=== PATIENT | female | born 1950 | race Caucasian/White ===

== ENCOUNTER → 2016-08-14 | Outpatient (CLI) | payer MEDICARE ==
[2016-08-16 11:08] LABS: Honeybee Venom IgE Class CLASS 0; Paper Wasp IgE 0.45 kU/L (<0.35); Paper Wasp IgE Class CLASS I; White-Faced Hornet IgE 0.36 kU/L (<0.35); White-Faced Hornet IgE Class CLASS I; Yellow Jacket IgE Class CLASS I
== END | disposition home or self-care (01) ==
LOC: LABWHC1 09:12
PROVIDERS: ATTEND Allergy & Immunology
DX: T78.49XA Other allergy, initial encounter (principal)
CPT/HCPCS: 36415; 86003

== ENCOUNTER → 2021-10-14 | Outpatient (CLI) | payer MEDICARE ==
--- NOTE | 2021-10-15 04:55 | MR ---
EXAMINATION TYPE: MR pelvis wo con DATE OF EXAM: 10/14/2021 COMPARISON: None HISTORY: Pelvic pain, left hip pain Multiplanar multi echo imaging of the pelvis without contrast. There is abnormal decreased signal in the left femoral head on the T1 images extending into the femor al neck. There are small areas of decreased signal as well in the left acetabulum. There is increased left side hip joint fluid. There is some partial collapse of the articular surface of the left femor al head. Sacral segments have normal alignment. No free fluid in the pelvis. No pelvic mass. No sign of a dixon l obstruction. Sacroiliac joints are intact. The proximal right femur and hip joint appear normal. 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 Par tial collapse of the articular surface. Hip joint effusion. There is some mild reactive edema in the left acetabulum. Septic arthritis in the left hip not entirely excluded.
== END | disposition home or self-care (01) ==
LOC: RADMRIMAIN 19:28
PROVIDERS: ATTEND Orthopaedic Surgery
DX: M16.12 Unilateral primary osteoarthritis, left hip (principal); M25.452 Effusion, left hip
CPT/HCPCS: 72195

== ENCOUNTER → 2021-10-18 | Outpatient (CLI) | payer MEDICARE | END | disposition home or self-care (01) | LOC: LABPAT 11:24 | PROVIDERS: ATTEND Orthopaedic Surgery | DX: Z01.812 Encounter for preprocedural laboratory examination (principal); Z22.322 Carrier or suspected carrier of Methicillin resistant Staphylococcus aureus | CPT/HCPCS: 87070 ==

== ENCOUNTER 2021-11-10 11:16 | Day surgery (SDC) | payer MEDICARE ==
[2021-11-09 08:36] VITALS: BMI 18.8
[~2021-11-10 11:16] MED LIST: ALBUTEROL NEB (CONC) 2.5 MG/0.5 ML INHALATION ONE; DEXAMETHASONE SOD PHOSPHATE 4 MG/ML 1 ML VIAL IV ONE; LACTATED RINGERS 1,000 ML IV SCH; LIDOCAINE 1% (10MG/ML) FOR IV START INTRADERMA PRN; LIDOCAINE 2% (PF) 20 MG/ML 5 ML VIAL INHALATION ONE; LIDOCAINE VISCOUS 300 MG/15 ML CUP MUCOUS MEM ONE; ONDANSETRON 4 MG/2 ML VIAL IVP PRN; SODIUM CHLORIDE 0.9% 1,000 ML IV SCH; fentaNYL (PF) 50 MCG/ML 2 ML AMP IV PRN
--- NOTE | 2021-11-10 12:36 | CT ---
EXAMINATION TYPE: CT Chest rm Qureshi Protocol DATE OF EXAM: 11/10/2021 COMPARISON: None HISTORY: bronchial navagation CT DLP: [address] of the chest was performed with lung and mediastinal window settings submitted. The la ck of contrast limits evaluation of the vascular, mediastinal and parenchymal structures including th e upper abdomen. LUNGS: Spiculated left upper lobe mass measuring approximately 2.5 x 3.6 x 1.9 cm. Areas of pleural e xtension noted posteriorly. No additional masses identified at this time. Pleural-based groundglass d ensity right lower lobe. MEDIASTINUM/CECILIA: Thoracic aorta is of normal caliber with limited evaluation given lack of contrast . The heart is not enlarged. No evidence for mediastinal mass. No lymph nodes greater than 1cm. UPPER ABDOMEN: No significant abnormality is seen. OTHER: No significant other abnormality. IMPRESSION: 1. Spiculated mass left upper lobe. CT for bronchial navigation.
[2021-11-10] MEDS ORDERED: SUCCINYLCHOLINE CHLORIDE 200 MG/10 ML VIAL IV ONE (12:40)
[2021-11-10] MEDS ORDERED: PROPOFOL 10 MG/ML 20 ML VIAL IV ONE (12:40)
[2021-11-10] MEDS ORDERED: fentaNYL (PF) 50 MCG/ML 2 ML AMP ONE (12:40)
[2021-11-10] MEDS ORDERED: LIDOCAINE 2% INJ 20 MG/ML (2 ML VIAL) ONE (12:40)
--- NOTE | 2021-11-10 13:33 | P.PCN ---
Date of Procedure: 11/10/21 Preoperative Diagnosis: Left upper lobe mass Postoperative Diagnosis: Left upper lobe mass Procedure(s) Performed: 1 Navigation bronchoscopy, transbronchial biopsies and brushings of the left upper lobe mass 2 EBUS evaluation of the mediastinal lymph nodes Operative Findings: The patient had a preoperative computed tomography scan of the chest using the Veran protocol. The CAT scan images were reviewed. The left upper lobe opacity was identified it was mapped appropriately. The CAT scan images are uploaded into a USB and then into the [employer] tower. After obtaining the consent the patient was taken to the OR suite he was intubated and put on mechanical ventilation by anesthesia then the scope was advanced to the ET tube until the Trachea was seen and it was normal and then the johanny appears normal then the scope advanced to the left main and JERMAIN LB1- LB3 were seen and no endobronchial lesions were seen then the scope advanced to the lingula and the LB4 and LB5 were seen and no endobronchial lesions were seen the scope retracted and advanced to the left lower lobes LB6 to LB12 were seen one by one and no endobronchial lesions, then the scope was retracted back to the johanny and advanced to the Right main and RUL RB1 and RB2 and RB3 were seen one by one and no endobronchial lesions were seen the scope. The bronchoscope was then retracted and advanced to the BI and RML RB4 and RB5 were seen and no endobronchial lesions were seen then it was retracted and advanced to the RLL RB6 to RB12 were seen one by one and no endobronchial lesions. Navigation bronchoscopy was performed. The main johanny and the secondary johanny on the left were used as the reference points and appropriate calibration was done. Following that, using a navigation guidance , the bronchoscope was advanced to the left upper lobe superior segment and various transbronchial biopsies and transbronchial brushings of the left upper lobe opacity was done without any complications. Then EBUS was used and the lymph nodes were examined. Direct measurement of the mediastinal lymph nodes included station for L, 10 L, 4 out of, 7, 10 R and 11 are superior and inferior and the lymph nodes and all of the stations were nonenlarged and all of them were less than 5 mm in size. No biopsies were done. The EBUS bronchoscope was removed and the procedure was terminated. The patient was extubated and transferred to recovery in stable condition. Chest x-rays to follow. Discharge per anesthesia.
[2021-11-10 13:52] VITALS: RESP 16; TEMP 97.3
[2021-11-10 14:45] VITALS: BP 174/69; PULSE 71
--- NOTE | 2021-11-10 15:06 | XR ---
EXAMINATION TYPE: XR chest 1V DATE OF EXAM: 11/10/2021 COMPARISON: CT 11/10/2021 INDICATION: Post bronchoscopy TECHNIQUE: Single frontal view of the chest is obtained. FINDINGS: The heart size is normal. The pulmonary vasculature is normal. There is diffuse increased density through the left upper lung field. No pneumothorax is evident. IMPRESSION: 1. No pneumothorax post bronchoscopy.
== END 2021-11-10 15:20 | disposition home or self-care (01) ==
LOC: ORWHC2ENDO 11:16
PROVIDERS: ATTEND Internal Medicine Critical Care Medicine
DX: R91.8 Other nonspecific abnormal finding of lung field (principal); F17.210 Nicotine dependence, cigarettes, uncomplicated; M81.0 Age-related osteoporosis without current pathological fracture; Z85.3 Personal history of malignant neoplasm of breast; Z86.16 Personal history of COVID-19; I10 Essential (primary) hypertension; F41.9 Anxiety disorder, unspecified; E78.5 Hyperlipidemia, unspecified; Z80.9 Family history of malignant neoplasm, unspecified; Z82.49 Family history of ischemic heart disease and other diseases of the circulatory system; J44.9 Chronic obstructive pulmonary disease, unspecified; M19.90 Unspecified osteoarthritis, unspecified site; Z79.83 Long term (current) use of bisphosphonates; Z79.51 Long term (current) use of inhaled steroids; Z79.899 Other long term (current) drug therapy; Z88.0 Allergy status to penicillin
CPT/HCPCS: 71045; 71250; 31628; 31623; 31627; J0330; J3010; J2704; J2001

== ENCOUNTER → 2021-12-01 | Outpatient (CLI) | payer MEDICARE ==
[2021-12-01 13:57] LABS: INR 0.9 (<1.2); Partial Thromboplastin Time 24.2 sec (22.0-30.0); Prothrombin Time 10.3 sec (9.0-12.0)
[2021-12-01 18:34] LABS: Basophils # (A) 0.05 X 10*3/uL (0.00-0.10); Basophils % (A) 0.6 %; Eosinophils # (A) 0.15 X 10*3/uL (0.04-0.35); Eosinophils % (A) 1.7 %; HCT 42.6 % (37.2-46.3); HGB 13.2 g/dL (12.0-15.0); Immature Grans, Automated 0.3 %; Lymphocytes # (A) 1.76 X 10*3/uL (0.90-5.00); Lymphocytes % (A) 20.3 %; MCH 31.8 pg (27.0-32.0); MCV 102.7 fL (80.0-97.0); Monocytes # (A) 0.76 X 10*3/uL (0.20-1.00); Monocytes % (A) 8.8 %; NRBC Per 100 WBC 0 /100 WBCS (0.0-0.0); Neutrophils % (A) 68.3 %; Platelet Count 382 X 10*3/uL (140-440); RBC 4.15 X 10*6/uL (4.10-5.20); RDW 13.5 % (11.5-14.5); WBC 8.65 X 10*3/uL (4.50-10.00)
[2021-12-01 19:50] LABS: African American GFR (CKD) 54.7 (60.0-200.0); Anion Gap 10.8 mmol/L (10.00-18.00); Blood Urea Nitrogen 25.2 mg/dL (9.0-27.0); Carbon Dioxide 23.6 mmol/L (20.0-27.5); Non-African American GFR(CKD) 47.2 (60.0-200.0); Potassium 5.3 mmol/L (3.5-5.5)
== END | disposition home or self-care (01) ==
LOC: LABPAT 11:23
PROVIDERS: ATTEND Thoracic Surgery (Cardiothoracic Vascular Surgery)
DX: Z01.812 Encounter for preprocedural laboratory examination (principal); R58 Hemorrhage, not elsewhere classified; R06.00 Dyspnea, unspecified; R91.8 Other nonspecific abnormal finding of lung field; Z79.899 Other long term (current) drug therapy
CPT/HCPCS: 80051; 82565; 82947; 84520; 85025; 85610; 85730

== ENCOUNTER 2021-12-08 07:30 | Inpatient (IN) | payer MEDICARE ==
[2021-12-16 13:07] VITALS: BMI 19.6
[2021-12-22] MEDS ORDERED: DEXAMETHASONE SOD PHOSPHATE 4 MG/ML 1 ML VIAL IV ONE (06:15)
[2021-12-22] MEDS ORDERED: LIDOCAINE 1% (10MG/ML) FOR IV START INTRADERMA ONE (06:31)
[2021-12-22] MEDS: LACTATED RINGERS 1,000 ML IV SCH ×2 (06:31→06:52)
[2021-12-22 06:35] LABS: Glucose,Whole Blood 108 mg/dL (70-110)
[2021-12-22] MEDS: ONDANSETRON 4 MG/2 ML VIAL IVP ONE ×2 (06:47→14:20)
[2021-12-22] MEDS ORDERED: MIDAZOLAM 2 MG/2 ML VIAL IV ONE (07:10)
[2021-12-22] MEDS ORDERED: MIDAZOLAM 2 MG/2 ML VIAL ONE (07:30)
[2021-12-22] MEDS ORDERED: SODIUM CHLORIDE 0.9% (PF) 10 ML VIAL ONE (07:30)
[2021-12-22] MEDS ORDERED: HYDROmorphone (PF) 1 MG/ML ONE (07:30)
[2021-12-22] MEDS ORDERED: LIDOCAINE 2% INJ 20 MG/ML (2 ML VIAL) ONE (07:30)
[2021-12-22] MEDS ORDERED: ROPIVACAINE 5 MG/ML 30 ML VIAL ONE (07:30)
[2021-12-22] MEDS ORDERED: ROCURONIUM 10 MG/ML (5 ML VIAL) IV ONE (07:30)
[2021-12-22] MEDS ORDERED: SUCCINYLCHOLINE CHLORIDE 200 MG/10 ML VIAL IV ONE (07:30)
[2021-12-22] MEDS ORDERED: PROPOFOL 10 MG/ML 20 ML VIAL IV ONE (07:30)
[2021-12-22] MEDS ORDERED: NEOSTIGMINE 1 MG/ML 10 ML VIAL ONE (07:30)
[2021-12-22] MEDS ORDERED: GLYCOPYRROLATE 0.2 MG/ML 2 ML VIAL ONE (07:30)
[2021-12-22] MEDS ORDERED: ePHEDrine 50 MG/ML 1 ML VIAL ONE (07:30)
[2021-12-22] MEDS ORDERED: fentaNYL (PF) 50 MCG/ML 2 ML AMP ONE (07:30)
[2021-12-22] MEDS ORDERED: LACTATED RINGERS 1,000 ML IV ONE (09:05)
[2021-12-22] MEDS ORDERED: BUPIVACAINE (PF) 0.5% 30 ML VIAL SQ ONE (09:35)
--- NOTE | 2021-12-22 10:23 | P.ANPRN ---
Procedure Note - Anesthesia - Nerve Block Performed Left Erector Spinae Time Out Performed: Yes (07:) Date of Procedure: 12/22/21 Procedure Start Time: Procedure Stop Time: :15 Location of Patient: PreOp Indication: Acute Post-Operative Pain, Requested by Surgeon (Dr Cuadra) Sedation Type: Sedate with meaningful contact maintained Preparation: Sterile Prep Position: Sitting Catheter: None Needle Types: Pajunk Needle Gauge: 21 Ultrasound used to visualize needle placement: Yes Ultrasound used to observe medication spread: Yes Injectate: 0.5% Ropivacaine (see comment for volume) (15cc +10cc PF Normal saline) Blood Aspirated: No Pain Paresthesia on Injection Noted: No Resistance on Injection: Normal Image Stored and Saved: Yes Events: Uneventful and Well Tolerated
--- NOTE | 2021-12-22 11:08 | P.OP ---
Date of Procedure: 12/22/21 Preoperative Diagnosis: Lung cancer left upper lobe Postoperative Diagnosis: Same Procedure(s) Performed: Robotic-assisted thoracoscopic left upper lobectomy with mediastinal lymph node dissection Anesthesia: MIKAELA Surgeon: Edenilson Cuadra Associate Data Scientist #1: Jean-Paul Arnold Estimated Blood Loss (ml): 25 IV fluids (ml): 1,000 Urine output (ml): 200 Pathology: other (Left upper lobe, lymph node stations L5 L6 level 7 L8 L9 L10 L11) Condition: stable Disposition: PACU Indications for Procedure: 71-year-old female with left upper lobe carcinoma documented on biopsy. PET scan and DANY were negative for metastasis. Patient is good functioning patient ECOG score 1. Pulmonary function was adequate to tolerate lobectomy. Operative Findings: Incomplete fissures. Anthracotic lymphadenopathy in hilum and mediastinum. Large tumor in posterior segment of left upper lobe. 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 No significant air leak on completion of the procedure. Good reexpansion of the lower lobe. Significant bleb disease of the anterior basal segment of the left lower lobe Description of Procedure: Patient was brought to the operating room. Gen. anesthesia was induced. She was intubated with a double-lumen endotracheal tube. This was positioned with fiberoptic bronchoscopy and secured. Patient was turned in the right lateral decubitus position and appropriately positioned for robotic lobectomy. The left chest was sterilely prepped and draped. Single lung ventilation was initiated. Initial port was placed in the anterior axillary line and the eighth interspace. This was a 8 mm robotic port. After confirming placement in the pleural space, CO2 insufflation was begun. 212 mm robotic ports were placed anterior and posterior to the initial port in the same interspace. Second 8 mm port was placed posteriorly in the fifth interspace. A working port was placed between the 2 most anterior ports at the level of the diaphragm. The robot was docked. We began with dissection in the fissure. We able to dissected the fissure down to the pulmonary artery in the midportion portion of the fissure. Both anteriorly and posteriorly to this the fissure could not be completely dissected. Dissection was carried along the pulmonary artery and the lingular branch was identified. This was dissected out and ligated and divided with a robotic vascular stapler. Dissection was carried proximally and another branch to the upper lobe was identified. This was dissected out and ligated and divided with the robotic vascular stapler. Dissection was now carried posteriorly and inferiorly. The inferior pulmonary vein was taken down and dissection carried across the pleural reflection behind the inferior pulmonary vein. The bronchus was identified. L 10 and level 7 lymph nodes were dissected out and sent for permanent section. Dissection was carried up onto the pulmonary artery. Higher branch leading to the upper lobe was identified and dissected out and ligated and divided with a robotic vascular stapler. We were now able to connect our initial dissection with the posterior dissection and complete the fissure posteriorly with a single firing of a robotic 45 mm blue stapler. We now directed our dissection anteriorly. Mckenna was opened above the inferior pulmonary vein and multiple branches of the superior pulmonary vein draining the lingula and upper lobe were identified. These were dissected out and ligated and divided with a single firing of a robotic vascular stapler. Dissection was carried up onto the bronchus. We able to initially encircle the lingular bronchus and ligated and divided it with a robotic green stapler. Dissection was carried anteriorly and L5 lymph node was resected. Truncus ante rior doses was now dissected out and ligated and divided with a robotic vascular stapler. There was a single remaining high branch of the pulmonary vein which was also ligated and divided with the robotic stapler. Dissection was carried back onto the hilum and the bronchus to the remaining apical and posterior segments of the upper lobe was dissected out. L 11 lymph nodes were dissected out and sent. We encircled the bronchus and ligated and divided it with a robotic green stapler. We now able to identify the remaining branch of the pulmonary artery and pulmonary vein to the upper lobe. These were encircled and ligated and divided with a single firing of a robotic vascular stapler. Remaining pleural reflection was taken down and a L6 lymph node was encountered and was resected and sent for permanent section. The lobectomy specimen was placed in an Endo Catch bag and the robot was undocked. The working port incision was enlarged and the lobectomy specimen removed in the Endo Catch bag and sent for permanent section. The chest was irrigated with warm water and the lung inflated. There was a minimal air leak at the fissure but no air leak from the bronchial stump. There was no significant bleeding. Some pro-gel was applied to the area of the airleak. 28-Estonian chest tube was placed through separate stab incision and positioned posterior apically. The lung was comple tely inflated at this time and the scope was removed. The chest tube was secured with suture and the incisions closed with layers of Vicryl suture. Posterior rib blocks were performed with half percent Marcaine. Skin glue and dry sterile dressings were applied. Chest tube was connected to a Pleur-evac. Patient was turned supine and extubated and transferred to recovery in stable condition.
--- NOTE | 2021-12-22 11:19 | P.ANPRN ---
Procedure Note - Anesthesia - Invasive Line Right Arterial Line Time Out Performed: Yes Date of Procedure: 12/22/21 Location of Patient: PreOp Preparation: Sterile Prep, Sterile Dressing Arterial Line Location: Radial Ultrasound Used: No Purpose - Visualization and Identification of Vasculature: No (20 guage done .right radial) Narrative: Central line placement per sterile protocol utilized.
[2021-12-22] MEDS: HYDROmorphone 0.5 MG/0.5 ML SYRINGE IVP PRN ×2 (11:56→13:02)
--- NOTE | 2021-12-22 11:56 | XR ---
EXAMINATION TYPE: XR chest 1V portable DATE OF EXAM: 12/22/2021 COMPARISON: 11/10/2021 INDICATION: Post lobectomy TECHNIQUE: Single frontal view of the chest is obtained. FINDINGS: The heart size is normal. The pulmonary vasculature is normal. Patient status post left lobectomy. Left-sided chest tube is present. Some apical pneumothorax is pre sent. Right lung is clear. No shift of the mediastinum towards the left with shift trachea to the lef t. Subcutaneous emphysema is present on the left. IMPRESSION: 1. Postsurgical changes left hemithorax post left lobectomy. 2. Left-sided chest tube in position with the tip at the apex. Pneumothorax is present.
[2021-12-22] MEDS ORDERED: IV FLUID CONTINUATION 1,000 ML IV ONE (13:14)
[2021-12-22] MEDS ORDERED: hydrALAZINE HCL 20 MG/ML 1 ML VIAL IVP ONE (13:36)
[2021-12-22] MEDS ORDERED: ONDANSETRON 4 MG/2 ML VIAL IVP PRN (14:00)
[2021-12-22] MEDS ORDERED: IPRATROPIUM-ALBUTEROL 3 ML NEB IH PRN (14:00)
[2021-12-22] MEDS ORDERED: ALPRAZolam 0.25 MG TAB PO PRN (14:00)
[2021-12-22] MEDS ORDERED: MAGNESIUM HYDROXIDE 2,400 MG/10 ML CUP PO PRN (14:00)
[2021-12-22] MEDS ORDERED: DEXTROSE 5%-0.45% NACL 1,000 ML IV SCH (14:00)
[2021-12-22] MEDS ORDERED: hydrALAZINE HCL 20 MG/ML 1 ML VIAL IVP PRN (14:04)
[2021-12-22 14:10] LABS: Glucose,Whole Blood 112 mg/dL (70-110)
[2021-12-22] MEDS: KETOROLAC 15 MG/ML 1 ML VIAL IVP SCH ×2 (14:17→20:09)
[2021-12-22] MEDS: traMADol 50 MG TAB PO PRN ×3 (14:18→21:06)
--- NOTE | 2021-12-22 14:18 | P.CNPUL ---
History of Present Illness Consult date: 12/22/21 Requesting physician: Edenilson Cuadra Reason for consult: abnormal CXR/CT Chief complaint: Non-small cell lung cancer History of present illness: This is a very pleasant 71-year-old female patient with a known history of chronic and ongoing tobacco dependence, left breast cancer with previous edgar mpectomy and radiation with hormonal treatment, osteoarthritis, chronic obstructive pulmonary disease with an FEV1 value 61% of predicted. She was also found to have early stage adenocarcinoma of the lung, T2a N0 M0 via navigational bronchoscopy formed by Dr. Hernandez. She was referred to Dr. Cuadra for left upper lobectomy. She was admitted today electively for the surgery. She did undergo a robotic-assisted thorascopic left upper lobectomy with mediastinal lymph node dissection. She is seen in the immediate postoperative care unit. She is awake and alert in no acute distress. Right-sided chest tube in place to wall suction with positive leak. Approximately 150 serosanguineous fluid returned thus far. She is maintaining good O2 saturations in the 90s on room air. Afebrile. Hemodynamically stable. Potassium 5.1. Glucose 112. She will be initiated on her Symbicort, DuoNeb inhalations, cefazolin. Heparin for DVT prophylaxis. She is educated regarding the use of the incentive spirometer. Postop chest x-ray reveals left hemithorax post left lobectomy. Left-sided chest tube in position with the tip at the apex. Small apical pneumothorax is present. Review of Systems REVIEW OF SYSTEMS: CONSTITUTIONAL: Denies any recent significant weight loss or weight gain. EYES: Denies change in vision. EARS, NOSE, MOUTH, THROAT: Denies headaches, denies sore throat. CARDIOVASCULAR: Denies chest pain, palpitations or syncopal episodes. RESPIRATORY: Left-sided chest discomfort post surgery. Denies shortness of breath, cough, congestion or hemoptysis. GASTROINTESTINAL: Denies change in appetite, denies abdominal pain GENITOURINARY: Denies hematuria, denies infections. MUSKULOSKELETAL: Denies pain, denies swelling. INTEGUMENTARY: Denies rash, denies eczema. NEUROLOGICAL: Denies recent memory loss, no recent seizure activity. PSYCHIATRIC: Denies anxiety, denies depression. HEMATOLOGIC/LYMPHATIC: Denies anemia, denies enlarged lymph nodes. Past Medical History Past Medical History: Cancer, COPD, Hypertension, Osteoarthritis (OA) Additional Past Medical History / Comment(s): mass in lung left-dx lung CA,steroids Dec 2021,breast CA 2014-received radiation History of Any Multi-Drug Resistant Organisms: None Reported Past Surgical History: Breast Surgery Additional Past Surgical History / Comment(s): ectpoic , lumpectomy lft breast, navigational bronchoscopy 11-10-21 Past Anesthesia/Blood Transfusion Reactions: No Reported Reaction Additional Past Anesthesia/Blood Transfusion Reaction / Comment(s): no hx blood transfusion Smoking Status: Current every day smoker - Past Family History Mother Family Medical History: Cancer Brother(s) Family Medical History: Cancer Additional Family Medical History / Comment(s): 1 brother-prostate Ca stge 4,1 brother-colon CA stge 4 Father Family Medical History: CVA/TIA, Hyperlipidemia, Hypertension Additional Family Medical History / Comment(s): stents Medications and Allergies Home Medications Medication Instructions Recorded Confirmed Type FLUoxetine HCL [PROzac] 10 mg PO QAM 10/24/21 12/22/21 History Losartan Potassium [Cozaar] 100 mg PO QAM 10/24/21 12/22/21 History Metoprolol Succinate (ER) [Toprol 25 mg PO QAM 10/24/21 12/22/21 History Xl] Simvastatin [Zocor] 40 mg PO HS 10/24/21 12/22/21 History diphenhydrAMINE HCL [Benadryl 25 mg PO DIRECTED PRN 10/24/21 12/22/21 History Allergy] traMADol HCL 50 mg PO BID PRN 10/24/21 12/22/21 History ALPRAZolam [Xanax] 0.25 mg PO BID PRN 11/09/21 12/22/21 History Albuterol Nebulized [Ventolin 2.5 mg INHALATION TID PRN 12/16/21 12/22/21 History Nebulized] Budesonide/Glycopyr/Formoterol 1 puff INHALATION BID 12/16/21 12/22/21 History [Breztri Aerosphere Inhaler] Ibuprofen [Motrin Ib] 200 mg PO DIRECTED PRN 12/22/21 12/22/21 History Allergies Allergy/AdvReac Type Severity Reaction Status Date / Time amoxicillin [From Augmentin] Allergy Rash/Hives Verified 12/22/21 06:18 clavulanic acid Allergy Rash/Hives Verified 12/22/21 06:18 [From Augmentin] Physical Exam Vitals: Vital Signs Temp Pulse Resp BP Pulse Ox 12/22/21 13:54 91 16 150/68 97 12/22/21 13:40 75 16 157/69 95 12/22/21 13:25 74 16 160/72 94 L 12/22/21 13:10 72 16 166/72 95 12/22/21 12:50 80 16 163/72 95 12/22/21 12:35 76 16 148/67 96 12/22/21 12:20 72 16 160/72 95 12/22/21 12:03 77 18 152/68 95 12/22/21 11:50 80 16 178/75 94 L 12/22/21 11:35 80 16 183/78 95 12/22/21 11:20 86 16 172/72 98 12/22/21 11:05 96.8 F L 88 16 144/65 100 12/22/21 07:16 87 18 142/65 98 12/22/21 06:22 97.5 F L 85 18 133/60 100 Intake and Output 12/21/21 12/22/21 12/22/21 22:59 06:59 14:59 Intake Total 300 2600 Output Total 95 Balance 300 2505 Intake: IV 300 2600 Output: Urine 70 Estimated Blood Loss 25 Other: Weight 46.9 kg GENERAL EXAM: Alert, very pleasant 71-year-old female, on room air, fairly comfortable in no apparent distress. HEAD: Normocephalic. EYES: Normal reaction of pupils, equal size. NOSE: Clear with pink turbinates. THROAT: No erythema or exudates. NECK: No masses, no JVD. CHEST: Left-sided chest tube secured in place. Dressing dry and intact. Pleural VAC to wall suction. Positive leak. LUNGS: Equal air entry with faint end expiratory wheeze, few scattered rhonchi in the left lung. CVS: S1 and S2 normal with no audible murmur, regular rhythm. ABDOMEN: No hepatosplenomegaly, normal bowel sounds, no guarding or rigidity. SPINE: No scoliosis or deformity SKIN: No rashes CENTRAL NERVOUS SYSTEM: No focal deficits, tone is normal in all 4 extremities. EXTREMITIES: There is no peripheral edema. No clubbing, no cyanosis. Peripheral pulses are intact. Results - Laboratory Findings CBC and BMP: 12/22/21 06:31 - Diagnostic Findings Chest x-ray: image reviewed Assessment and Plan Assessment: Early-stage adenocarcinoma of the lung, T2a N0 M0. Status post robotic-assisted left upper lobectomy with mediastinal lymph node dissection. Postoperative day #0 Chronic and ongoing tobacco dependence Chronic obstructive pulmonary disease with an FEV1 value 61% of predicted History of left-sided breast cancer status post lumpectomy with radiation therapy and hormonal treatment Osteoarthritis History of COVID-19 infection in August 2021. Vaccinated 3. Plan: The patient was seen and evaluated Chest x-ray, labs and medications are reviewed Continue Symbicort, DuoNeb inhalations Cefazolin per CT services Heparin for DVT prophylaxis Encourage increased use of the incentive spirometer Again educated regarding the importance of complete smoking cessation We will continue to follow and make further recommendations based on her clini nori status I have personally seen and examined the patient, performed the documentation and the assessment and plan as written. Number of minutes spent on the visit: 20.
[2021-12-22] MEDS: IPRATROPIUM-ALBUTEROL 3 ML NEB IH SCH ×3 (15:31→20:42)
[2021-12-22] MEDS: HEPARIN SODIUM,PORCINE/PF 5,000 UNIT/0.5 ML SYRINGE SQ SCH ×2 (16:37→23:44)
[2021-12-22] MEDS: SENNOSIDES-DOCUSATE SODIUM 1 EACH TAB PO SCH (20:09)
[2021-12-22] MEDS: ATORVASTATIN 20 MG TAB PO SCH (20:09)
[2021-12-22] MEDS: SYMBICORT 160-4.5 MCG INHALER INHALATION SCH (20:42)
[2021-12-23] MEDS: KETOROLAC 15 MG/ML 1 ML VIAL IVP SCH ×4 (02:18→19:30)
[2021-12-23] MEDS: traMADol 50 MG TAB PO PRN ×4 (04:52→20:15)
[2021-12-23 07:04] LABS: Basophils % (A) 0 %; Eosinophils # (A) 0.1 k/uL (0-0.7); Eosinophils % (A) 1 %; HGB 11.7 gm/dL (11.4-16.0); Lymphocytes # (A) 0.9 k/uL (1.0-4.8); Lymphocytes % (A) 10 %; MCH 32.9 pg (25.0-35.0); MCHC 32.4 g/dL (31.0-37.0); MCV 101.3 fL (80.0-100.0); Mean Platelet Volume 8.9; Monocytes # (A) 0.5 k/uL (0-1.0); Monocytes % (A) 5 %; Neutrophils # (A) 7.6 k/uL (1.3-7.7); Neutrophils % (A) 83 %; Platelet Count 252 k/uL (150-450); RBC 3.56 m/uL (3.80-5.40); RDW 12.2 % (11.5-15.5); WBC 9.1 k/uL (3.8-10.6)
[2021-12-23 07:10] LABS: Calcium 8.7 mg/dL (8.4-10.2)
--- NOTE | 2021-12-23 07:10 | XR ---
EXAMINATION TYPE: XR chest 1V DATE OF EXAM: 12/23/2021 COMPARISON: NONE HISTORY: SOB, Follow Up FINDINGS: Indwelling tubes and catheters are unchanged. Left-sided chest tube with tiny left apical pneumothora x persists. Subcutaneous air along the left lateral chest wall extending into the neck. Postoperative changes of the left chest. No change in left basilar volume loss. Stable appearance of the cardio-mediastinal structures at this time. IMPRESSION: 1. Stable portable chest. Clinical correlation and follow up until resolution is recommended.
[2021-12-23] MEDS: SYMBICORT 160-4.5 MCG INHALER INHALATION SCH ×2 (07:33→19:43)
[2021-12-23] MEDS: IPRATROPIUM-ALBUTEROL 3 ML NEB IH SCH ×4 (07:33→19:43)
[2021-12-23] MEDS: HEPARIN SODIUM,PORCINE/PF 5,000 UNIT/0.5 ML SYRINGE SQ SCH ×2 (08:37→15:00)
[2021-12-23] MEDS: PANTOPRAZOLE 40 MG TABLET PO SCH (08:37)
[2021-12-23] MEDS: FLUoxetine HCL 10 MG CAP PO SCH (08:38)
[2021-12-23] MEDS: SENNOSIDES-DOCUSATE SODIUM 1 EACH TAB PO SCH ×2 (08:38→20:15)
[2021-12-23] MEDS: METOPROLOL SUCCINATE (ER) 25 MG TAB.ER.24H PO SCH (08:38)
[2021-12-23] MEDS: LOSARTAN 50 MG TAB PO SCH (08:38)
--- NOTE | 2021-12-23 08:39 | P.PN ---
Subjective Progress Note Date: 12/23/21 Principal diagnosis: Lung cancer left upper lobe consistent with primary adenocarcinoma based on preoperative navigational bronchoscopy. Previous medical history of hypertension, hyperlipidemia, current tobacco dependence, mild COPD, daily wine consumption, stage IA breast cancer treated with lumpectomy and radiation, osteoporosis with need for left hip replacement, and significant family history of cancer POD #1 robotic assisted thoracoscopic left upper lobectomy with mediastinal lymph node dissection The patient was seen and examined this morning sitting up in a recliner eating breakfast in no acute distress. States post surgical pain is mostly controlled with current medication regimen, denies shortness of breath. States she feels much better be up in the chair versus an in bed. Left pleural chest tube remains to continuous wall suction, no air leak present this morning. Currently on room air with oxygen saturation in the mid 90s, able to achieve 1000 mL on incentive spirometry. No other new concerns. Objective - Vital Signs Vital signs: Vital Signs Temp 97.8 F 12/22/21 20:00 Pulse 96 12/23/21 07:43 Resp 21 12/23/21 07:00 BP 140/71 12/23/21 07:00 Pulse Ox 93 L 12/23/21 07:00 FiO2 Intake & Output 12/22/21 12/23/21 12/23/21 18:59 06:59 18:59 Intake Total 2600 950 Output Total 295 535 40 Balance 2305 415 -40 Weight 47.8 kg Intake: IV 2600 Intake, IV Titration 500 Amount Dextrose 5%-0.45% NaCl 1, 500 000 ml @ 50 mls/hr IV . Q20H [facility] Rx#:[id number] Oral 450 Output: Urine 270 535 40 Estimated Blood Loss 25 Other: Voiding Method Indwelling Catheter Indwelling Catheter - Exam CONSTITUTIONAL: Appears comfortable, cooperative, no acute distress RESPIRATORY: Lungs sounds diminished bilaterally. Respirations even, nonlabored. Currently on room air with oxygen saturation 95%. Able to achieve 1000 mL on incentive spirometry. Weak cough. CARDIOVASCULAR: S1, S2 present. Regular rate and rhythm, sinus rhythm on telemetry. Palpable peripheral pulses bilaterally. No edema present. No calf pain or tenderness noted. SCDs present. GASTROINTESTINAL: Abdomen soft, nontender, nondistended. Active bowel sounds present 4 quadrants. Tolerating diet. GENITOURINARY: Staley present this morning clear, yellow urine, output 25-50 mL per hour overnight INTEGUMENTARY: Skin is warm and dry with evidence of good perfusion. Thoracic incisions well approximated and covered with dry intact dressing. NEUROLOGIC: Cranial nerves II through XII intact MUSKULOSKELETAL: Able to move all extremities, strength equal bilaterally, gait normal PSYCHIATRIC: Alert and oriented to person place and time, appropriate affect, intact judgment and insight INVASIVE LINES AND TUBES: Left pleural chest tube present and connected to wall suction, no air leaks present, 500 mL serosanguineous drainage since surgery - Allied health notes Allied health notes reviewed: nursing - Labs CBC & Chem 7: 12/23/21 06:32 12/23/21 06:32 Labs: Abnormal Lab Results - Last 24 Hours (Table) 12/22/21 12/23/21 12/23/21 Range/Units 14:08 06:32 06:32 RBC 3.56 L (3.80-5.40) m/uL MCV 101.3 H (80.0-100.0) fL Lymphocytes # 0.9 L (1.0-4.8) k/uL Sodium 128 L (137-145) mmol/L BUN 20 H (7-17) mg/dL Creatinine 1.21 H (0.52-1.04) mg/dL Glucose 107 H (74-99) mg/dL POC Glucose (mg/dL) 112 H (70-110) mg/dL - Imaging and Cardiology Chest x-ray: report reviewed, image reviewed Assessment and Plan Assessment: 1. Lung cancer left upper lobe consistent with primary adenocarcinoma based on preoperative navigational bronchoscopy, status post robotic assisted thoracoscopic left upper lobectomy with mediastinal lymph node dissection, final pathology pending 2. History of hypertension 3. History hyperlipidemia, treated 4. Current tobacco dependence 5. Mild COPD, preoperative FEV1 61% of predicted 6. Daily wine consumption 7. History of stage IA breast cancer treated with lumpectomy and radiation 8. Osteoporosis with need for left hip replacement 9. Significant family history of cancer Plan: 1. Chest tube placed to waterseal 2. Encourage incentive spirometry use 10 times every hour while awake. Bronchodilators per pulmonology 3. Increase activity, ambulate as tolerated 4. Will monitor daily labs and x-rays, follow pathology 5. GI/DVT prophylaxis 6. Pain control with current medication regimen 7. Continue home medications 8. Discontinue Staley catheter 9. Patient currently in ICU as 3 S. overflow patient, may send to 3 S. if bed becomes available 10. More recommendations to follow
--- NOTE | 2021-12-23 13:01 | P.PN ---
Subjective Progress Note Date: 12/23/21 Principal diagnosis: Status post thoracotomy and lobectomy postoperative day #1 This is a very pleasant 71-year-old female patient with a known history of chronic and ongoing tobacco dependence, left breast cancer with previous lumpectomy and radiation with hormonal treatment, osteoarthritis, chronic obstructive pulmonary disease with an FEV1 value 61% of predicted. She was also found to have early stage adenocarcinoma of the lung, T2a N0 M0 via navigational bronchoscopy formed by Dr. Hernandez. She was referred to Dr. uCadra for left upper lobectomy. She was admitted today electively for the surgery. She did undergo a robotic-assisted thorascopic left upper lobectomy with mediastinal lymph node dissection. She is seen in the immediate postoperative care unit. She is awake and alert in no acute distress. Right-sided chest tube in place to wall suction with positive leak. Approximately 150 serosanguineous fluid returned thus far. She is maintaining good O2 saturations in the 90s on room air. Afebrile. Hemodynamically stable. Potassium 5.1. Glucose 112. She will be initiated on her Symbicort, DuoNeb inhalations, cefazolin. Heparin for DVT prophylaxis. She is educated regarding the use of the incentive spirometer. Postop chest x-ray reveals left hemithorax post left lobectomy. Left-sided chest tube in position with the tip at the apex. Small apical pneumothorax is present. Reevaluated today on 12/23/21, patient remains in the ICU as an overflow, doing extremely well, basically asymptomatic. Patient has adenocarcinoma involving the left upper lobe underwent uneventful robotic-assisted thoracoscopic left upper lobectomy with mediastinal lymph node dissection. Final pathology is pending. Patient continues to have a left sided chest tube in place, her lung is fully expanded, hardly any air leak noted in the left pleural VAC. Patient is doing quite well. Presumably the patient has early-stage lung adenocarcinoma again the final pathology on the lymph nodes is pending labs today are basically unremarkable except for low sodium of 128, possibly hypovolemic in nature. Doubt SIADH. Objective - Vital Signs Vital signs: Vital Signs Temp 97.8 F 12/22/21 20:00 Pulse 95 12/23/21 12:00 Resp 21 12/23/21 12:00 BP 122/64 12/23/21 12:00 Pulse Ox 95 12/23/21 12:00 FiO2 Intake & Output 12/22/21 12/23/21 12/23/21 18:59 06:59 18:59 Intake Total 2600 950 400 Output Total 295 535 305 Balance 2305 415 95 Weight 47.8 kg Intake: IV 2600 Intake, IV Titration 500 Amount Dextrose 5%-0.45% NaCl 1, 500 000 ml @ 50 mls/hr IV . Q20H [facility] Rx#:[id number] Oral 450 400 Output: Chest Tube Drainage 190 Left Lateral Chest 190 Urine 270 535 115 Estimated Blood Loss 25 Other: Voiding Method Indwelling Catheter Indwelling Catheter - Exam Physical Exam: Revealed 71-year-old female in no distress Head: Atraumatic, normocephalic. HEENT:[Neck is supple.] [No neck masses.] [No thyromegaly.] [No JVD.] Chest: [Clear throughout, no crackles, no rhonchi, no wheezes.] Left-sided chest tube is noted. Pleural VAC is noted to wall suction. No air leak noted. Cardiac Exam: [Normal S1 and S2, no S3 gallop, no murmur.] Abdomen: [Soft, nontender, no megaly, no rebound, no guarding, normal bowel sounds.] Extremities: [No clubbing, no edema, no cyanosis.] Neurological Exam: [No focal neurologic deficit.] Alert oriented 3. Psychiatric: Normal mood affect and normal mental status examination. Skin: No rashes Musculoskeletal: No deformities and no limitation in range of motion - Labs CBC & Chem 7: 12/23/21 06:32 12/23/21 06:32 Labs: Abnormal Lab Results - Last 24 Hours (Table) 12/22/21 12/23/21 12/23/21 Range/Units 14:08 06:32 06:32 RBC 3.56 L (3.80-5.40) m/uL MCV 101.3 H (80.0-100.0) fL Lymphocytes # 0.9 L (1.0-4.8) k/uL Sodium 128 L (137-145) mmol/L BUN 20 H (7-17) mg/dL Creatinine 1.21 H (0.52-1.04) mg/dL Glucose 107 H (74-99) mg/dL POC Glucose (mg/dL) 112 H (70-110) mg/dL Assessment and Plan Assessment: Early-stage adenocarcinoma of the lung, T2a N0 M0. Status post robotic-assisted left upper lobectomy with mediastinal lymph node dissection. Postoperative day #1 Chronic and ongoing tobacco dependence Chronic obstructive pulmonary disease with an FEV1 value 61% of predicted History of left-sided breast cancer status post lumpectomy with radiation therapy and hormonal treatment Osteoarthritis History of COVID-19 infection in August 2021. Vaccinated 3. Acute hyponatremia possibly hypovolemic in nature, doubt SIADH. Recommendation: Continue to monitor her hyponatremia IV fluid 0.9 normal saline at 50 mL per hour Continue present supportive care measures Continue updrafts Possible removal of chest tube in the next 24 hours Continue DVT prophylaxis Awaiting final pathology on the lymph nodes and on the lobectomy Continue incentive spirometry We will continue to follow Time with Patient: Less than 30
[2021-12-23] MEDS: SODIUM CHLORIDE 0.9% 1,000 ML IV SCH (14:56)
[2021-12-23] MEDS: ACETAMINOPHEN TAB 500 MG TAB PO PRN ×2 (15:02→20:16)
[2021-12-23] MEDS: ATORVASTATIN 20 MG TAB PO SCH (20:15)
[2021-12-24] MEDS: HEPARIN SODIUM,PORCINE/PF 5,000 UNIT/0.5 ML SYRINGE SQ SCH ×2 (00:14→08:47)
[2021-12-24] MEDS: KETOROLAC 15 MG/ML 1 ML VIAL IVP SCH ×2 (02:05→08:47)
[2021-12-24] MEDS: traMADol 50 MG TAB PO PRN (04:18)
[2021-12-24] MEDS: PANTOPRAZOLE 40 MG TABLET PO SCH (06:30)
[2021-12-24] MEDS: ACETAMINOPHEN TAB 500 MG TAB PO PRN (06:32)
--- NOTE | 2021-12-24 07:08 | XR ---
EXAMINATION TYPE: XR chest 2V DATE OF EXAM: 12/24/2021 HISTORY: Status post lobectomy COMPARISON: 12/23/2021 TECHNIQUE: Single view of the chest is submitted. FINDINGS: Left-sided lobectomy changes demonstrated. Left-sided chest tube is noted unchanged in position. Tiny left apical pneumothorax is seen. Diminishing subcutaneous air along the chest wall and neck. Hyperinflation within the right lung. The heart is stable. Mild mediastinal shift from right to left. Degenerative changes are seen of the dorsal spine. IMPRESSION: 1. Stable chest
[2021-12-24] MEDS: IPRATROPIUM-ALBUTEROL 3 ML NEB IH SCH ×2 (08:29→12:21)
[2021-12-24] MEDS: SYMBICORT 160-4.5 MCG INHALER INHALATION SCH (08:29)
[2021-12-24 08:37] LABS: HCT 32.5 % (34.0-46.0); HGB 10.8 gm/dL (11.4-16.0); MCH 33.7 pg (25.0-35.0); MCHC 33.2 g/dL (31.0-37.0); MCV 101.4 fL (80.0-100.0); Mean Platelet Volume 8.9; Platelet Count 218 k/uL (150-450); RBC 3.21 m/uL (3.80-5.40); RDW 12.3 % (11.5-15.5); WBC 8.2 k/uL (3.8-10.6)
[2021-12-24] MEDS: LOSARTAN 50 MG TAB PO SCH (08:47)
[2021-12-24] MEDS: FLUoxetine HCL 10 MG CAP PO SCH (08:47)
[2021-12-24] MEDS: METOPROLOL SUCCINATE (ER) 25 MG TAB.ER.24H PO SCH (08:47)
[2021-12-24] MEDS: SENNOSIDES-DOCUSATE SODIUM 1 EACH TAB PO SCH (08:47)
[2021-12-24] MEDS: SODIUM CHLORIDE 0.9% 1,000 ML IV SCH (08:47)
--- NOTE | 2021-12-24 08:56 | P.PN ---
Subjective Progress Note Date: 12/24/21 Principal diagnosis: Lung cancer left upper lobe consistent with primary adenocarcinoma based on preoperative navigational bronchoscopy. Previous medical history of hypertension, hyperlipidemia, current tobacco dependence, mild COPD, daily wine consumption, stage IA breast cancer treated with lumpectomy and radiation, osteoporosis with need for left hip replacement, and significant family history of cancer POD #2 robotic assisted thoracoscopic left upper lobectomy with mediastinal lymph node dissection The patient was seen and examined this morning sitting up in bed eating breakfast in no acute distress. States post surgical pain is mostly controlled with current medication regimen, denies shortness of breath. Left pleural chest tube was to water seal, no air leak present this morning. CXR reviewed. Currently on room air with oxygen saturation in the mid 90s, able to achieve 1000 mL on incentive spirometry. No other new concerns. Objective - Vital Signs Vital signs: Vital Signs Temp 97.9 F 12/24/21 00:00 Pulse 84 12/24/21 08:46 Resp 17 12/24/21 03:36 BP 164/73 12/24/21 03:36 Pulse Ox 94 L 12/24/21 08:32 FiO2 Intake & Output 12/23/21 12/24/21 12/24/21 18:59 06:59 18:59 Intake Total 520 1080 120 Output Total 305 Balance 215 1080 120 Intake: Oral 520 1080 120 Output: Chest Tube Drainage 190 Left Lateral Chest 190 Urine 115 Other: Voiding Method Toilet Toilet # Voids 3 - Exam CONSTITUTIONAL: Appears comfortable, cooperative, no acute distress RESPIRATORY: Lungs sounds diminished bilaterally. Respirations even, nonlabored. Currently on room air with oxygen saturation 94%. Able to achieve 1000 mL on incentive spirometry. Weak cough. CARDIOVASCULAR: S1, S2 present. Regular rate and rhythm, sinus rhythm on telemetry. Palpable peripheral pulses bilaterally. No edema present. No calf pain or tenderness noted. SCDs present. GASTROINTESTINAL: Abdomen soft, nontender, nondistended. Active bowel sounds present 4 quadrants. Tolerating diet. GENITOURINARY: Staley discontinued yesterday, patient continues to void INTEGUMENTARY: Skin is warm and dry with evidence of good perfusion. Thoracic incisions well approximated and covered with dry intact dressing. NEUROLOGIC: Cranial nerves II through XII intact MUSKULOSKELETAL: Able to move all extremities, strength equal bilaterally, gait normal PSYCHIATRIC: Alert and oriented to person place and time, appropriate affect, intact judgment and insight INVASIVE LINES AND TUBES: Left pleural chest tube present to water seal, no air leaks present, 400 mL serous drainage in the last 24 hours - Allied health notes Allied health notes reviewed: nursing - Labs CBC & Chem 7: 12/24/21 08:03 12/23/21 06:32 Labs: Abnormal Lab Results - Last 24 Hours (Table) 12/24/21 Range/Units 08:03 RBC 3.21 L (3.80-5.40) m/uL Hgb 10.8 L (11.4-16.0) gm/dL Hct 32.5 L (34.0-46.0) % MCV 101.4 H (80.0-100.0) fL - Imaging and Cardiology Chest x-ray: report reviewed, image reviewed Assessment and Plan Assessment: 1. Lung cancer left upper lobe consistent with primary adenocarcinoma based on preoperative navigational bronchoscopy, status post robotic assisted thoracoscopic left upper lobectomy with mediastinal lymph node dissection, final pathology pending 2. History of hypertension 3. History hyperlipidemia, treated 4. Current tobacco dependence 5. Mild COPD, preoperative FEV1 61% of predicted 6. Daily wine consumption 7. History of stage IA breast cancer treated with lumpectomy and radiation 8. Osteoporosis with need for left hip replacement 9. Significant family history of cancer Plan: 1. Chest tube discontinued. Will repeat CXR in 2 hours, if stable will discharge to home 2. Encourage incentive spirometry use 10 times every hour while awake. Bronchodilators per pulmonology 3. Increase activity, ambulate as tolerated 4. Will monitor daily labs and x-rays, follow pathology 5. GI/DVT prophylaxis 6. Pain control with current medication regimen 7. Continue home medications 8. More recommendations to follow
[2021-12-24 08:57] LABS: Calcium 8.4 mg/dL (8.4-10.2); Potassium 4.7 mmol/L (3.5-5.1)
[2021-12-24] MEDS ORDERED: SODIUM CHLORIDE TAB 1 GM TAB PO STA (09:26)
[2021-12-24 10:24] VITALS: TEMP 97.8
--- NOTE | 2021-12-24 10:44 | P.DS ---
Providers Date of admission: 12/22/21 05:41 Expected date of discharge: 12/24/21 Attending physician: Edenilson Cuadra Consults: 12/22/21 14:00 Consult Physician Routine Consulting Provider: Charly Gamble Consult Reason/Comments: post lobectomy Do you want consulting provider notified?: Yes Primary care physician: Aurora Cordova [facility] Course: FINAL DIAGNOSIS: 1. Lung cancer left upper lobe consistent with primary adenocarcinoma based on preoperative navigational bronchoscopy, final pathology pending 2. History of hypertension 3. History of hyperlipidemia, treated 4. Current tobacco dependence 5. Mild COPD, preoperative FEV1 61% of predicted 6. Daily 1 consumption 7. History of stage IA breast cancer treated with lumpectomy and radiation 8. Osteoporosis with need for left hip replacement 9. Significant family history of cancer 10. Hyponatremia PRINCIPAL PROCEDURE: 1. Robotic-assisted thoracoscopic left upper lobectomy with mediastinal lymph node dissection HISTORY OF PRESENT ILLNESS: This is a 71-year-old female patient who follows outpatient with Dr Cordova for primary care and Dr. Hernandez for pulmonology. She has severe disease in her left hip and was undergoing workup for left hip replacement. She was found have a large mass in her left lung. Computed tomography scan demonstrated a 3.5 x 2.5 cm mass peripherally in the posterior segment of the left upper lobe of the lung without evidence of adenopathy. PET scan confirmed uptake in the tumor and demonstrated no evidence of metastasis. She underwent diagnostic bronchoscopy which was positive for non-small cell carcinoma, consistent with primary pulmonary adenocarcinoma in the lung nodule. The patient was referred to Dr. Cuadra from cardiothoracic surgery. She was recommended to undergo robotic-assisted left upper lobectomy. The usual perioperative course was discussed in detail with the patient and her , all risks and benefits were explained, all questions were answered, and consent was obtained to proceed with surgery. The patient was scheduled for surgery at the earliest possible date with recommendations to quit smoking completely. HOSPITAL COURSE: The patient was brought to the hospital on 12/22/21, taken to the preoperative area, prepared in the usual fashion, and subsequently taken to the operating room where Dr. Cuadra performed a robotic-assisted thoracoscopic left upper lobectomy with mediastinal lymph node dissection. Upon completion of surgery the patient was extubated and taken to the recovery room for further hemodynamic monitoring. She was eventually admitted to the stepdown unit for further monitoring. Initially she had an air leak the night of surgery, however the next morning there was no air leak and the chest was placed to waterseal. She continued to have no air leak and her chest tube was discontinued on postoperative day #2. Follow-up chest x-ray was stable. She was placed on salt tabs for her hyponatremia. Her oxygen was titrated down, she was tolerating oral diet, her pain was controlled, and she was ready to be discharged to home on postoperative day #2. She received written and verbal instruction regarding her medications, activity restrictions, signs and symptoms requiring physician notification, and follow-up appointments. Patient Condition at Discharge: Stable Plan - Discharge Summary Discharge Rx Participant: No New Discharge Prescriptions: New Sodium Chloride Tab 1 gm PO DAILY #7 tablet Acetaminophen Tab [Tylenol] 1,000 mg PO Q6HR PRN tab PRN Reason: Fever And/ Or Pain Continue Simvastatin [Zocor] 40 mg PO HS Metoprolol Succinate (ER) [Toprol XL] 25 mg PO QAM FLUoxetine HCL [PROzac] 10 mg PO QAM diphenhydrAMINE HCL [Benadryl] 25 mg PO DIRECTED PRN PRN Reason: hives ALPRAZolam [Xanax] 0.25 mg PO BID PRN PRN Reason: Anxiety Albuterol Nebulized [Ventolin Nebulized] 2.5 mg INHALATION TID PRN PRN Reason: sob Losartan Potassium [Cozaar] 100 mg PO QAM Budesonide/Glycopyr/Formoterol [Breztri Aerosphere Inhaler] 1 puff INHALATION BID Ibuprofen [Motrin Ib] 200 mg PO DIRECTED PRN PRN Reason: mild pain traMADol HCL 50 mg PO BID PRN #6 tab PRN Reason: Pain Discharge Medication List FLUoxetine HCL [PROzac] 10 mg PO QAM 10/24/21 [History] Losartan Potassium [Cozaar] 100 mg PO QAM 10/24/21 [History] Metoprolol Succinate (ER) [Toprol XL] 25 mg PO QAM 10/24/21 [History] Simvastatin [Zocor] 40 mg PO HS 10/24/21 [History] diphenhydrAMINE HCL [Benadryl] 25 mg PO DIRECTED PRN 10/24/21 [History] ALPRAZolam [Xanax] 0.25 mg PO BID PRN 11/09/21 [History] Albuterol Nebulized [Ventolin Nebulized] 2.5 mg INHALATION TID PRN 12/16/21 [History] Budesonide/Glycopyr/Formoterol [Breztri Aerosphere Inhaler] 1 puff INHALATION BID 12/16/21 [History] Ibuprofen [Motrin Ib] 200 mg PO DIRECTED PRN 12/22/21 [History] Acetaminophen Tab [Tylenol] 1,000 mg PO Q6HR PRN tab 12/24/21 [Rx] Sodium Chloride Tab 1 gm PO DAILY #7 tablet 12/24/21 [Rx] traMADol HCL 50 mg PO BID PRN #6 tab 12/24/21 [Rx] Follow up Appointment(s)/Referral(s): Edenilson Cuadra MD [STAFF PHYSICIAN] - 01/04/22 12:00 pm Aurora Cordova DO [Primary Care Provider] - As Needed Kody Hernandez MD [STAFF PHYSICIAN] - 01/13/22 8:30 am Ambulatory/Diagnostic Orders: Basic Metabolic Panel [LAB.AMB] Location: [facility] XR chest 2V [RAD.AMB] Time Frame: 01/04/22, Facility: [facility], Location: [facility] Patient Instructions/Handouts: Lung Lobectomy (DC) Activity/Diet/Wound Care/Special Instructions: DISCHARGE INSTRUCTIONS: 1. No driving for 2 weeks, or until physician gives their ok. 2. No lifting, pushing, or pulling more than 10 pounds for 2 weeks. The physician will advise of any restriction changes. 3. Continue pain control per as needed orders. Alternate acetaminophen (Tylenol) and ibuprofen (Motrin/Advil) for pain. 4. Continue with incentive spirometry and splinting until otherwise directed by the physician. 5. Leave chest tube dressing for 48 hours. After that, remove all dressings and shower daily. 6. Routine incision care. No powders, lotions, ointments on incisions. 7. Please call surgeon/REPAIR SUPERVISOR for temp greater than 101 F or purulent drainage from incisions. 8. Smoking cessation counseling and program information provided. 9. Please have X-ray completed at the hospital before appointment with Dr. Cuadra 10. Please have lab work completed between 12/31/21-01/04/22 Discharge Disposition: HOME SELF-CARE
--- NOTE | 2021-12-24 11:00 | XR ---
EXAMINATION TYPE: XR chest 2V DATE OF EXAM: 12/24/2021 10:33 AM COMPARISON: Chest radiographs from 12/24/2021 TECHNIQUE: XR chest 2V Frontal and lateral views of the chest. CLINICAL INDICATION:Female, 71 years old with history of post chest tube removal; FINDINGS: Lungs/Pleura: There is no evidence of focal consolidation, or pneumothorax. Blunting of the left cost ophrenic angle. Pulmonary vascularity: Unremarkable. Heart/mediastinum: Cardiomediastinal silhouette is unremarkable. Atherosclerotic calcifications are seen in the aorta. Mild leftward shift of the trachea similar prior. Musculoskeletal: No acute osseous pathology. Other findings: Subcutaneous emphysema scattered throughout the left thorax. Tubes: Chest tube removed. IMPRESSION: 1. Left thoracotomy tube removal without evidence pneumothorax. 2. Small left pleural effusion.
[2021-12-24 11:26] VITALS: RESP 17
[2021-12-24 12:12] VITALS: BP 155/70
[2021-12-24 12:34] VITALS: PULSE 82
--- NOTE | 2021-12-24 12:42 | P.PN ---
Subjective Progress Note Date: 12/24/21 Principal diagnosis: Status post thoracotomy and lobectomy postoperative day #2 This is a very pleasant 71-year-old female patient with a known history of chronic and ongoing tobacco dependence, left breast cancer with previous lumpectomy and radiation with hormonal treatment, osteoarthritis, chronic obstructive pulmonary disease with an FEV1 value 61% of predicted. She was also found to have early stage adenocarcinoma of the lung, T2a N0 M0 via navigational bronchoscopy formed by Dr. Hernandez. She was referred to Dr. Cuadra for left upper lobectomy. She was admitted today electively for the surgery. She did undergo a robotic-assisted thorascopic left upper lobectomy with mediastinal lymph node dissection. She is seen in the immediate postoperative care unit. She is awake and alert in no acute distress. Right-sided chest tube in place to wall suction with positive leak. Approximately 150 serosanguineous fluid returned thus far. She is maintaining good O2 saturations in the 90s on room air. Afebrile. Hemodynamically stable. Potassium 5.1. Glucose 112. She will be initiated on her Symbicort, DuoNeb inhalations, cefazolin. Heparin for DVT prophylaxis. She is educated regarding the use of the incentive spirometer. Postop chest x-ray reveals left hemithorax post left lobectomy. Left-sided chest tube in position with the tip at the apex. Small apical pneumothorax is present. Reevaluated today on 12/23/21, patient remains in the ICU as an overflow, doing extremely well, basically asymptomatic. Patient has adenocarcinoma involving the left upper lobe underwent uneventful robotic-assisted thoracoscopic left upper lobectomy with mediastinal lymph node dissection. Final pathology is pending. Patient continues to have a left sided chest tube in place, her lung is fully expanded, hardly any air leak noted in the left pleural VAC. Patient is doing quite well. Presumably the patient has early-stage lung adenocarcinoma again the final pathology on the lymph nodes is pending labs today are basically unremarkable except for low sodium of 128, possibly hypovolemic in nature. Doubt SIADH. Reevaluated today on 12/24/21, patient is doing well, relatively asymptomatic, her chest tube was removed today, and I believe the patient is being considered for discharge today. Sodium remains low, patient may truly have SIADH from her recent bronchogenic carcinoma. Yesterday I recommended 0.9 normal saline on this patient, and her sodium was 128. Today it's 126. However the patient is relatively asymptomatic, and I believe the patient will likely improve with fluid restrictions. Chest x-ray today showed no evidence of pneumothorax, this was done after the tube was removed. Objective - Vital Signs Vital signs: Vital Signs Temp 97.8 F 12/24/21 08:40 Pulse 82 12/24/21 12:32 Resp 17 12/24/21 11:25 BP 155/70 12/24/21 12:12 Pulse Ox 97 12/24/21 11:25 FiO2 Intake & Output 12/23/21 12/24/21 12/24/21 18:59 06:59 18:59 Intake Total 520 1080 120 Output Total 305 Balance 215 1080 120 Intake: Oral 520 1080 120 Output: Chest Tube Drainage 190 Left Lateral Chest 190 Urine 115 Other: Voiding Method Toilet Toilet Toilet # Voids 3 1 - Exam Physical Exam: Revealed 71-year-old female in no distress Head: Atraumatic, normocephalic. HEENT:[Neck is supple.] [No neck masses.] [No thyromegaly.] [No JVD.] Chest: [Clear throughout, no crackles, no rhonchi, no wheezes.] Cardiac Exam: [Normal S1 and S2, no S3 gallop, no murmur.] Abdomen: [Soft, nontender, no megaly, no rebound, no guarding, normal bowel sounds.] Extremities: [No clubbing, no edema, no cyanosis.] Neurological Exam: [No focal neurologic deficit.] Alert oriented 3. Psychiatric: Normal mood affect and normal mental status examination. Skin: No rashes Musculoskeletal: No deformities and no limitation in range of motion - Labs CBC & Chem 7: 12/24/21 08:03 12/24/21 08:03 Labs: Abnormal Lab Results - Last 24 Hours (Table) 12/24/21 12/24/21 12/24/21 Range/Units 08:03 08:03 08:03 RBC 3.21 L (3.80-5.40) m/uL Hgb 10.8 L (11.4-16.0) gm/dL Hct 32.5 L (34.0-46.0) % MCV 101.4 H (80.0-100.0) fL Sodium 126 L (137-145) mmol/L BUN 19 H (7-17) mg/dL Creatinine 1.21 H (0.52-1.04) mg/dL Glucose 135 H (74-99) mg/dL Osmolality 272 L (280-301) mosm/kg Assessment and Plan Assessment: Early-stage adenocarcinoma of the lung, T2a N0 M0. Status post robotic-assisted left upper lobectomy with mediastinal lymph node dissection. Postoperative day #2 Chronic and ongoing tobacco dependence Chronic obstructive pulmonary disease with an FEV1 value 61% of predicted History of left-sided breast cancer status post lumpectomy with radiation therapy and hormonal treatment Osteoarthritis History of COVID-19 infection in August 2021. Vaccinated 3. Hyponatremia, possibly SIADH. Recommendation: Fluid restriction at home. No more than 1500 mL per day Agree with discharge planning, and follow-up with primary care physician and with Dr. Hernandez on outpatient basis May need to repeat and close follow-up on her sodium/electrolytes. Time with Patient: Less than 30
== END 2021-12-24 14:12 | disposition home or self-care (01) | DRG 164 ==
LOC: 2ORMAIN 12-22 05:41 → 2SICU 12-22 13:05 → 3SCARD 12-23 14:36
PROVIDERS: ADMIT Thoracic Surgery (Cardiothoracic Vascular Surgery); ATTEND Thoracic Surgery (Cardiothoracic Vascular Surgery)
PROC: 07B74ZX Excision of Thorax Lymphatic, Percutaneous Endoscopic Approach, Diagnostic (ICD-10-PCS; 2021-12-22)
PROC: 8E0W4CZ Robotic Assisted Procedure of Trunk Region, Percutaneous Endoscopic Approach (ICD-10-PCS; 2021-12-22)
PROC: 0BTG4ZZ Resection of Left Upper Lung Lobe, Percutaneous Endoscopic Approach (ICD-10-PCS; principal; 2021-12-22 07:30)
DX: C34.12 Malignant neoplasm of upper lobe, left bronchus or lung (principal); E22.2 Syndrome of inappropriate secretion of antidiuretic hormone; J93.82 Other air leak; J93.9 Pneumothorax, unspecified; J44.9 Chronic obstructive pulmonary disease, unspecified; I10 Essential (primary) hypertension; R59.1 Generalized enlarged lymph nodes; M19.90 Unspecified osteoarthritis, unspecified site; F17.210 Nicotine dependence, cigarettes, uncomplicated; E78.5 Hyperlipidemia, unspecified; M81.0 Age-related osteoporosis without current pathological fracture; E86.1 Hypovolemia; Z96.642 Presence of left artificial hip joint; Z85.3 Personal history of malignant neoplasm of breast; Z92.3 Personal history of irradiation; Z88.0 Allergy status to penicillin; Z79.51 Long term (current) use of inhaled steroids; Z85.118 Personal history of other malignant neoplasm of bronchus and lung; Z86.16 Personal history of COVID-19
CPT/HCPCS: 36415; 64999; 71045; 71046; 80048; 83930; 84132; 84443; 85025; 85027; 86850; 86900; 86901; 94640; 94760

== ENCOUNTER → 2021-12-30 | Outpatient (CLI) | payer MEDICARE ==
--- NOTE | 2021-12-30 11:56 | XR ---
EXAMINATION TYPE: XR chest 2V DATE OF EXAM: 12/30/2021 COMPARISON: 12/24/2021 TECHNIQUE: PA and lateral views submitted. HISTORY: Postop FINDINGS: Volume loss and elevation left hemidiaphragm with small left pleural effusion. No overt failure or pn eumothorax. Heart size normal with atherosclerotic change aorta. Diffuse osteopenia. Underlying COPD noted. Increased density along the left aortic margin could represent aortic ectasia. Recommend follo w-up CT scan. IMPRESSION: 1. Postoperative change compatible with prior surgery and volume loss. There is a density along the l ateral margin of the aorta which also likely represents aortic ectasia postoperatively. Consider foll ow-up CT scan to exclude other etiologies including adenopathy or mass.
[2021-12-30 19:41] LABS: African American GFR (CKD) 65.3 (60.0-200.0); Anion Gap 13.1 mmol/L (10.00-18.00); BUN/Creat Ratio 11.58 Ratio (12.00-20.00); Blood Urea Nitrogen 11.7 mg/dL (9.0-27.0); Calcium 9.6 mg/dL (8.7-10.3); Carbon Dioxide 21.9 mmol/L (20.0-27.5); Non-African American GFR(CKD) 56.4 (60.0-200.0); Potassium 4.8 mmol/L (3.5-5.5)
== END | disposition home or self-care (01) ==
LOC: RADXRMAIN 11:09
PROVIDERS: ATTEND Nurse Practitioner Acute Care
DX: Z90.2 Acquired absence of lung [part of] (principal)
CPT/HCPCS: 71046; 80048

== ENCOUNTER → 2022-05-26 | Outpatient (CLI) | payer MEDICARE | END | disposition home or self-care (01) | LOC: LABPAT 10:32 | PROVIDERS: ATTEND Orthopaedic Surgery | DX: Z01.812 Encounter for preprocedural laboratory examination (principal); M16.12 Unilateral primary osteoarthritis, left hip; Z22.322 Carrier or suspected carrier of Methicillin resistant Staphylococcus aureus | CPT/HCPCS: 87070 ==

== ENCOUNTER 2022-06-06 07:08 | Day surgery (SDC) | payer MEDICARE ==
--- NOTE | 2022-06-05 08:24 | P.HPOR ---
History of Present Illness H&P Date: 06/05/22 Chief Complaint: Left hip pain Patient is a 72-year-old female who presents with progressive left hip pain for the past couple years worsening recently. She's having pain with any weightbearing activities. She's been limping. It is worse at night. She's been using a cane. She tried medications without much relief. Review of Systems As per HPI Past Medical History Past Medical History: Cancer, Hypertension, Osteoarthritis (OA) Additional Past Medical History / Comment(s): lung cancer 2021-had surg., osteoporosis, hx. breast cancer 2016-had surg. & radiation, current right foot pain-has bone spur History of Any Multi-Drug Resistant Organisms: None Reported Past Surgical History: Breast Surgery Additional Past Surgical History / Comment(s): ectopic , lumpectomy left, thorascopic left upper lobectomy in 2021 Past Anesthesia/Blood Transfusion Reactions: No Reported Reaction Additional Past Anesthesia/Blood Transfusion Reaction / Comment(s): no hx blood transfusion Smoking Status: Current every day smoker - Past Family History Mother Family Medical History: Cancer Brother(s) Family Medical History: Cancer Additional Family Medical History / Comment(s): 1 brother-prostate Ca stge 4,1 brother-colon CA stge 4 Father Family Medical History: CVA/TIA, Hyperlipidemia, Hypertension Additional Family Medical History / Comment(s): stents Medications and Allergies Home Medications Medication Instructions Recorded Confirmed Type FLUoxetine HCL [PROzac] 10 mg PO QAM 10/24/21 05/31/22 History Losartan Potassium [Cozaar] 100 mg PO QAM 10/24/21 05/31/22 History Metoprolol Succinate (ER) [Toprol 25 mg PO QAM 10/24/21 05/31/22 History XL] Simvastatin [Zocor] 40 mg PO HS 10/24/21 05/31/22 History ALPRAZolam [Xanax] 0.25 mg PO BID PRN 11/09/21 05/31/22 History Albuterol Nebulized [Ventolin 2.5 mg INHALATION BID 12/16/21 05/31/22 History Nebulized] Budesonide/Glycopyr/Formoterol 2 puff INHALATION BID 12/16/21 05/31/22 History [Breztri Aerosphere Inhaler] traMADol HCL 50 mg PO BID PRN #6 tab 12/24/21 05/31/22 Rx Calcium Carbonate [Calcium] 600 mg PO DAILY 06/01/22 06/01/22 History Cholecalciferol [Vitamin D3 (25 25 mcg PO DAILY 06/01/22 06/01/22 History Mcg = 1000 Iu)] Romosozumab-Aqqg [Evenity] 105 mg SQ Q30D 06/01/22 06/01/22 History hydrOXYzine HCL [Atarax] 25 mg PO TID PRN 06/01/22 06/01/22 History Allergies Allergy/AdvReac Type Severity Reaction Status Date / Time amoxicillin [From Augmentin] Allergy Rash/Hives Verified 05/31/22 14:21 clavulanic acid Allergy Rash/Hives Verified 05/31/22 14:21 [From Augmentin] ibuprofen [From Motrin] AdvReac GI upset Verified 05/31/22 14:21 Physical Examination - Hip left Gait: antalgic Tenderness with palpation: anterior Pain with motion: internal rotation and hip flexion ROM: flexion: 70 degrees ROM: internal rotation: 0 degrees (With pain) ROM: external rotation: 20 degrees Crepitus with motion: Yes Strength: extension: 5/5 Strength: flexion: 5/5 Strength: abduction: 5/5 Tests: impingement tests: positive Results The patient is a well-developed well-nourished female approximately 5 foot 1, 110 pounds of mesomorphic habitus. HEENT exam is nonfocal, neck is supple. She has limited passive motion of the left hip secondary to pain. Clinically she has mild shortening left lower extremity compared to the right. Her distal neurovascular appears intact left lower extremity. - Diagnostic results Hip x-ray: image reviewed (2 views of the left hip obtain the office shows stage IV avascular necrosis of the left femoral head with collapse) Assessment and Plan Assessment: Stage IV left hip avascular necrosis Lungs cancer status post lobectomy Plan: I talked to the patient length regarding her condition along with treatment options. At this point she continues to be more symptomatic and limited because of pain. After thorough discussion she has proceed with surgery. We'll plan proceed with left total hip arthroplasty utilizing an anterior approach. Risks and benefits were discussed at length in layman's terms. We will institute DVT prophylaxis postoperatively.
[~2022-06-06 07:08] MED LIST changes: +ACETAMINOPHEN TAB 500 MG TAB PO PRN; -ALBUTEROL NEB (CONC) 2.5 MG/0.5 ML INHALATION ONE; +HYDROmorphone 0.5 MG/0.5 ML SYRINGE IVP PRN; -LACTATED RINGERS 1,000 ML IV SCH; -LIDOCAINE 1% (10MG/ML) FOR IV START INTRADERMA PRN; -LIDOCAINE 2% (PF) 20 MG/ML 5 ML VIAL INHALATION ONE; -LIDOCAINE VISCOUS 300 MG/15 ML CUP MUCOUS MEM ONE; +MELOXICAM 7.5 MG TAB PO PRN; +ONDANSETRON 4 MG/2 ML VIAL IVP ONE; -ONDANSETRON 4 MG/2 ML VIAL IVP PRN; -SODIUM CHLORIDE 0.9% 1,000 ML IV SCH; +TRANEXAMIC ACID IN NACL,ISO-OS 1,000 MG in SALINE 1 100ML.BAG IVPB PRN; -fentaNYL (PF) 50 MCG/ML 2 ML AMP IV PRN
[2022-06-06] MEDS: LACTATED RINGERS 1,000 ML IV SCH (07:31)
[2022-06-06] MEDS ORDERED: MIDAZOLAM 2 MG/2 ML VIAL IVP ONE (08:18)
[2022-06-06] MEDS ORDERED: ROPIVACAINE 5 MG/ML 30 ML VIAL ONE (08:31)
[2022-06-06] MEDS ORDERED: MIDAZOLAM 2 MG/2 ML VIAL ONE (08:31)
[2022-06-06] MEDS ORDERED: TRANEXAMIC ACID IN NACL,ISO-OS 1,000 MG/100 ML BAG ONE (08:31)
[2022-06-06] MEDS ORDERED: PROPOFOL 10 MG/ML 20 ML VIAL IV ONE (08:31)
[2022-06-06] MEDS ORDERED: DEXAMETHASONE SOD PHOSPHATE 4 MG/ML 1 ML VIAL ONE (08:31)
[2022-06-06] MEDS ORDERED: fentaNYL (PF) 50 MCG/ML 2 ML AMP ONE (08:31)
[2022-06-06] MEDS ORDERED: ceFAZolin 1,000 MG in SODIUM CHLORIDE 0.9% 1,000 ML IRRIGATION ONE (08:37)
[2022-06-06] MEDS ORDERED: LACTATED RINGERS 1,000 ML IV ONE (09:31)
[2022-06-06] MEDS ORDERED: NALOXONE 0.4 MG/ML 1 ML VIAL IV PRN (09:51)
[2022-06-06] MEDS ORDERED: HYDROcodone/APAP 5-325MG 1 EACH TAB PO PRN (09:51)
[2022-06-06] MEDS ORDERED: MAGNESIUM HYDROXIDE 2,400 MG/10 ML CUP PO PRN (09:51)
[2022-06-06] MEDS ORDERED: HYDROmorphone 0.5 MG/0.5 ML SYRINGE IVP PRN ×2 (09:51)
--- NOTE | 2022-06-06 10:10 | P.OP ---
Date of Procedure: 06/06/22 Preoperative Diagnosis: Stage IV left hip avascular necrosis Postoperative Diagnosis: Same Procedure(s) Performed: Left total hip arthroplastypress-fitlateral approach Implants: Depuy Corail size 10 collared 135 standard press-fit femoral stem, 32+1 ceramic femoral head, 50 mm Agate acetabular shell with neutral polyethylene liner. Anesthesia: regional, spinal Surgeon: Isidoro Keita Clinical Cytogenetics Director #1: Bob Donovan Estimated Blood Loss (ml): 100 Pathology: other (Femoral head) Condition: stable Disposition: PACU Indications for Procedure: The patient 72-year-old female who presents with progressive left hip pain secondary to avascular necrosis. A discussion of the risks and benefits of operative intervention was made with patient she opted to proceed. Operative risks to include infection, neurovascular injury, development of blood clots, fracture, ligament discrepancy, possible instability and need for subsequent procedures was discussed. Informed consent was obtained. Operative Findings: As below Description of Procedure: The patient was brought to the operating room, and after induction of spinal anesthesia was placed in a lateral decubitus position. The bony prominences were appropriately padded. The pelvis was stable perpendicular to the floor with a pegboard. The left lower extremity was prepped and draped in normal fashion. A 12 cm incision was then made centered over the greater trochanter extending superiorly to level the ASIS and distally in line with the femoral shaft. The skin and subcutaneous tissues were divided sharply. Electrocautery was used for hemostasis. The fascia karena and gluteus adele fascia was split in line with the skin incision. The muscle fibers were bluntly dissected proximally. A self-retaining retractor was placed. The anterior and posterior margins of the gluteus medius muscles identified and the anterior two thirds was detached from the greater trochanter with electrocautery. The gluteus minimus tendon was identified and detached in a similar fashion. A wide capsulotomy was performed. The femoral neck fracture was identified in the lower neck cut was made approximately 1 1/2 cm above the level of the lesser trochanter with a sagittal saw at a 45 the shaft. The head was then extracted with a corkscrew. Attention was then paid towards preparing the acetabular. Anterior and post erior retractors were placed. The remaining capsular labral tissues debrided sharply clearly defining the acetabular margins. Began reaming with a 41 mm reamer taking care to initially medialize, then reaming at 45 of abduction and 20 of anteversion. Sequential reaming is performed up to 49 mm. This was down to bleeding bony surface. A trial 50 mm acetabular shell was inserted at 45 of abduction and 20 of anteversion. This was fully seated. There was good rim fit and stability. A neutral polyethylene liner was then impacted. Care taken to avoid any soft tissue interposition. Attention was then paid towards preparing the proximal femur. A box chisel was used to open the metaphyseal region. A canal finder was used to find the femoral canal. Sequential broaching was performed up to a size 10. This is placed in 15 of anteversion with the leg perpendicular floor judging off the trans-epicondylar axis. There is good rotational stability. A calcar mill was used to fashion the medial calcar. A trial 135 standard neck along with a 32 mm + 1 trial head was placed. The hip was gently reduced. It was taken through range of motion. I felt to be stable in flexion and extension with internal and external rotation. I felt there was adequate jewish of soft tissue tension. The hip was gently dislocated. The trial components removed. Pulsatile lavage was utiliz ed. The final size 10 135 standard collared femoral stem was inserted again with the leg perpendicular to the floor in 15 of anteversion. Again there was good rotational stability. A 32 mm + 1 ceramic femoral head was gently impacted. The hip was gently reduced. Again it was taken through motion and felt to be stable in flexion and extension with internal and external rotation. Pulsatile lavage was again utilized. With the leg in abduction the gluteus minimus and medius tendons reattached to the greater trochanter with #2 Ethibond suture. There was minimal drainage therefore a deep drain was not placed. The fascia karena and gluteus adele fascia was closed with #2 Ethibond suture. The subcutaneous tissues were reapproximated interrupted 2-0 Vicryl sutures. The skin was reapproximated with 3-0 subcuticular strata fix suture. Skin tape and adhesive was applied. A sterile dressing was applied. The patient was awoken from sedation and transferred to recovery room in good condition. Blood loss was estimated 100 mL. No complications were incurred. Sponge and needle counts were correct in the case. Bob GARCÍA assisted during the major composes case to include exposure, implantation, and closure.
--- NOTE | 2022-06-06 10:46 | XR ---
EXAMINATION TYPE: XR Hip Limited LT DATE OF EXAM: 06/06/2022 CLINICAL HISTORY: Postoperative evaluation TECHNIQUE: Single portable view of the left hip was submitted. FINDINGS: Noted are changes of total hip arthroplasty with femoral and acetabular components appearin g well seated. Alignment is anatomic. Postsurgical soft tissue changes are evident. IMPRESSION: Satisfactory postoperative alignment
--- NOTE | 2022-06-06 12:54 | P.ANPRN ---
Procedure Note - Anesthesia - Nerve Block Performed Left Robin Single Time Out Performed: Yes Date of Procedure: 06/06/22 Procedure Start Time: : Procedure Stop Time: : Location of Patient: PreOp Indication: Acute Post-Operative Pain, Requested by Surgeon Sedation Type: Sedate with meaningful contact maintained Preparation: Sterile Prep Position: Supine Needle Types: Pajunk Needle Gauge: 21 Ultrasound used to visualize needle placement: Yes Ultrasound used to observe medication spread: Yes Blood Aspirated: No Pain Paresthesia on Injection Noted: No Resistance on Injection: Normal Image Stored and Saved: Yes Events: Uneventful and Well Tolerated (Ropivacaine 0.5% 20 mL plus dexamethasone 4 mg)
[2022-06-06] MEDS ORDERED: ATORVASTATIN 20 MG TAB PO SCH (21:00)
[2022-06-06] MEDS ORDERED: ALBUTEROL NEBULIZED 2.5 MG/3 ML INHALATION SCH (21:00)
[2022-06-06] MEDS ORDERED: SENNOSIDES-DOCUSATE SODIUM 1 EACH TAB PO SCH (21:00)
[2022-06-06] MEDS: IPRATROPIUM-ALBUTEROL 3 ML NEB INHALATION SCH (21:22)
[2022-06-06] MEDS: HYDROcodone/APAP 5-325MG 1 EACH TAB PO PRN (23:24)
[2022-06-07] MEDS: LACTATED RINGERS 1,000 ML IV SCH (06:38)
[2022-06-07] MEDS: HYDROcodone/APAP 5-325MG 1 EACH TAB PO PRN ×2 (06:39→12:31)
[2022-06-07] MEDS: IPRATROPIUM-ALBUTEROL 3 ML NEB INHALATION SCH ×2 (08:26→11:15)
[2022-06-07 08:29] VITALS: RESP 16
[2022-06-07] MEDS ORDERED: ALPRAZolam 0.25 MG TAB PO PRN (08:43)
[2022-06-07] MEDS ORDERED: FLUoxetine HCL 10 MG CAP PO SCH (09:00)
[2022-06-07] MEDS ORDERED: METOPROLOL SUCCINATE (ER) 25 MG TAB.ER.24H PO SCH (09:00)
[2022-06-07] MEDS ORDERED: RIVAROXABAN 10 MG TAB PO SCH (09:00)
[2022-06-07] MEDS ORDERED: LOSARTAN 50 MG TAB PO SCH (09:00)
[2022-06-07 11:14] LABS: Basophils # (A) 0.02 X 10*3/uL (0.00-0.10); Basophils % (A) 0.2 %; Eosinophils # (A) 0 X 10*3/uL (0.04-0.35); Eosinophils % (A) 0 %; HCT 32.6 % (37.2-46.3); HGB 10.3 g/dL (12.0-15.0); Immature Grans, Automated 0.4 %; Lymphocytes # (A) 1.21 X 10*3/uL (0.90-5.00); Lymphocytes % (A) 10.2 %; MCH 32.8 pg (27.0-32.0); MCHC 31.6 g/dL (32.0-37.0); MCV 103.8 fL (80.0-97.0); Mean Platelet Volume 11.8 fL (9.5-12.2); Monocytes # (A) 1.17 X 10*3/uL (0.20-1.00); Monocytes % (A) 9.9 %; NRBC Per 100 WBC 0 /100 WBCS (0.0-0.0); Neutrophils # (A) 9.37 X 10*3/uL (1.80-7.70); Neutrophils % (A) 79.3 %; Platelet Count 289 X 10*3/uL (140-440); RBC 3.14 X 10*6/uL (4.10-5.20); RDW 12.6 % (11.5-14.5); WBC 11.82 X 10*3/uL (4.50-10.00)
--- NOTE | 2022-06-07 12:00 | P.PN ---
Subjective Progress Note Date: 06/07/22 Principal diagnosis: Stage IV left hip avascular necrosis Patient was seen at bedside this morning lying semirecumbent position with dressing over left hip. Patient says she has been up a few times since surgery performed yesterday to use the bathroom. Patient says she has been using walker. Patient says she is in a moderate amount of pain currently. Patient feels that the [place] has helped somewhat with pain control. Patient says she is open to going home or to rehab . Patient says she does have 5 steps at home that are very steep. Patient says she does have a walker if she were to go home. Patient does have a history of lung cancer. Patient says she has not had a bowel movement yet, however, patient says she has been passing gas. Patient says she has not worked with physical therapy yet this morning. Patient denies chest pain, fever, nausea, change in vision, loss of bowel/bladder control. Objective - Vital Signs Vital signs: Vital Signs Temp 97.9 F 06/07/22 07:05 Pulse 84 06/07/22 08:37 Resp 16 06/07/22 08:37 BP 150/78 06/07/22 07:05 Pulse Ox 98 06/07/22 07:05 FiO2 Intake & Output 06/06/22 06/07/22 06/07/22 18:59 06:59 18:59 Intake Total 2030 Output Total 100 Balance 1931 Weight 46.9 kg Intake: IV 1551 Oral 480 Output: Estimated Blood Loss 100 Other: # Voids 1 5 - Exam Left hip: Incision is clean, dry, and intact. The exofin fusion tape is in good condition. There is minimal soft tissue swelling and ecchymosis surrounding the medial and lateral aspects of the incision. There is some tenderness to palpation along the right lateral malleolus and in the forefoot. Negative for any swelling/ecchymosis/wounds/ulcers/erythema on the right foot/ankle. Calf is soft, no tenderness with palpation. Plantar flexion, dorsiflexion, EHL, FHL are intact. Sensory exam to light touch throughout the extremity is intact, dorsal pedis pulses 2+. - Labs CBC & Chem 7: 06/07/22 06:21 06/06/22 18:10 Labs: Abnormal Lab Results - Last 24 Hours (Table) 06/06/22 Range/Units 18:10 Potassium 5.4 H (3.5-5.1) mmol/L Assessment and Plan Assessment: 1. Stage IV left hip avascular necrosis - Postop day 1 status post left total hip arthroplasty Plan: 1. Stage IV left hip avascular necrosis - left total hip arthroplasty performed yesterday, 06/06/2022. Patient stable at bedside this morning. Patient has yet to work with physical therapy today. Pending physical therapy evaluat ion/recommendations, plan for discharge home with health services. Pain medication as needed. Weightbearing as tolerated with walker. discharge home today with health services 2. Appreciate medical management 3. Pain management - [place]; Tylenol 4. DVT prophylaxis - Xarelto in hospital; going home with eliquis 2.5 mg BID x 2 weeks 5. GI prophylaxis - senna 6. PT/OT - weightbearing as tolerated with walker 7. Encourage incentive spirometer use 8. Discharge planning - discharge home today with health services Time with Patient: Less than 30
--- NOTE | 2022-06-07 12:03 | P.DS ---
Providers Date of admission: 06/06/2022 Expected date of discharge: 06/07/22 Attending physician: Isidoro Keita Consults: 06/06/22 09:51 Consult Physician Routine Consulting Provider: Ru Kingsley Consult Reason/Comments: medical management s/p left total hip arthroplasty (lateral approach) Do you want consulting provider notified?: Yes Primary care physician: Aurora Cordova Hospital Course: Date of admission: 06/06/2022 Date of discharge: 06/07/2022 Admission diagnosis: Stage IV left hip avascular necrosis Discharge diagnosis: same Attending physician: Dr. Keita Surgical procedures: left total hip arthroplasty Brief history: Patient is a 72-year-old female with a history of stage IV left hip avascular necrosis. At this point patient has failed conservative treatment measures and has opted to proceed with a elective left total hip arthroplasty. Hospital course: Details of patient's surgery can be found in operative report. Patient tolerated the procedure well and was subsequently transported to orthopedic floor. Patient's orthopeidc and medical care was provided daily. Patient had daily laboratory tests performed for evaluation of overall blood counts. Patient had daily physical therapy to include strengthening range of motion as well as education with walker ambulation. Patient was treated with Xarelto for their postoperative DVT prophylaxis during their inpatient stay. Patient was noted to have a relatively uneventful postoperative course. Patient reported satisfactory pain control with oral pain medications by postoperative day 1. Patient showed satisfactory progress with physical therapy. Patient moved steadily through the program and had no difficulty meeting the goals by po stoperative day 1. Given patient's otherwise satisfactory course and having met physical therapy goals, plan is to discharge patient home with health services on postoperative day 1 Discharge condition/disposition: Patient will be discharged home with health services in stable condition. Discharge medications: Instructions are given on resumption of patient's normal daily medications per primary care recommendation, in addition patient will be prescribed [place] 5 mg/325 mg; senna; Eliqus 2.5 mg BID x 2 weeks Orthopedic Discharge Instructions: 1. Wound care and infection precautions, keep incision dry and covered while showering, no lotions, creams, moisturizers. No soaking, pools, hot tubs. Do not scrub over incision. 2. Weight-bear as tolerated with walker / cane until follow-up. 3. Ice and elevate when necessary. Do not exceed 20 minutes per hour with ice pack. 4. Utilize compression sleeve until seen at first follow up appointment. 5. Pain meds and anticoagulants per prescription. 6. Pain medication has potential to cause constipation. Increase oral fluid and fiber intake. Contact primary care provider if you have not had a bowel movement within 48 hours after discharge. 7. No anti-inflammatory medication until discussed at first post operative visit, this including Motrin, Aleve, Mobic, Diclofenac. 8. Follow up in office at 2 weeks postop with Gregorio Neff PA-C / Bob Donovan PA-C 9. Follow up with your primary care doctor 7-10 days after discharge. 10. Contact [facility] with any questions, . Keep incision clean, dry, intact. While showering, cover fusion tape with Saran wrap. Keep fusion tape on until follow-up appointment in office in 2 weeks. Assessment: Stage IV left hip avascular necrosis Procedures: left total hip arthroplasty Patient Condition at Discharge: Good Plan - Discharge Summary Discharge Rx Participant: No New Discharge Prescriptions: New HYDROcodone/APAP 5-325MG [[place] 5-325] 1 - 2 tab PO Q6HR PRN #36 tab PRN Reason: Pain Apixaban [Eliquis] 2.5 mg PO BID #60 tab Sennosides/Docusate Sodium [Senna Plus 8.6-50 mg Softgel] 1 each PO DAILY #20 capsule No Action Simvastatin [Zocor] 40 mg PO HS Metoprolol Succinate (ER) [Toprol XL] 25 mg PO QAM FLUoxetine HCL [PROzac] 10 mg PO QAM ALPRAZolam [Xanax] 0.25 mg PO BID PRN PRN Reason: Anxiety Albuterol Nebulized [Ventolin Nebulized] 2.5 mg INHALATION BID Cholecalciferol [Vitamin D3 (25 Mcg = 1000 Iu)] 25 mcg PO DAILY hydrOXYzine HCL [Atarax] 25 mg PO TID PRN PRN Reason: Itching Romosozumab-Aqqg [Evenity] 105 mg SQ Q30D Calcium Carbonate [Calcium] 600 mg PO DAILY Losartan Potassium [Cozaar] 100 mg PO QAM Budesonide/Glycopyr/Formoterol [Breztri Aerosphere Inhaler] 2 puff INHALATION BID traMADol HCL 50 mg PO BID PRN #6 tab PRN Reason: Pain Discharge Medication List FLUoxetine HCL [PROzac] 10 mg PO QAM 10/24/21 [History] Losartan Potassium [Cozaar] 100 mg PO QAM 10/24/21 [History] Metoprolol Succinate (ER) [Toprol XL] 25 mg PO QAM 10/24/21 [History] Simvastatin [Zocor] 40 mg PO HS 10/24/21 [History] ALPRAZolam [Xanax] 0.25 mg PO BID PRN 11/09/21 [History] Albuterol Nebulized [Ventolin Nebulized] 2.5 mg INHALATION BID 12/16/21 [History] Budesonide/Glycopyr/Formoterol [Breztri Aerosphere Inhaler] 2 puff INHALATION BID 12/16/21 [History] traMADol HCL 50 mg PO BID PRN #6 tab 12/24/21 [Rx] Calcium Carbonate [Calcium] 600 mg PO DAILY 06/01/22 [History] Cholecalciferol [Vitamin D3 (25 Mcg = 1000 Iu)] 25 mcg PO DAILY 06/01/22 [History] Romosozumab-Aqqg [Evenity] 105 mg SQ Q30D 06/01/22 [History] hydrOXYzine HCL [Atarax] 25 mg PO TID PRN 06/01/22 [History] Apixaban [Eliquis] 2.5 mg PO BID #60 tab 06/07/22 [Rx] HYDROcodone/APAP 5-325MG [[place] 5-325] 1 - 2 tab PO Q6HR PRN #36 tab 06/07/22 [Rx] Sennosides/Docusate Sodium [Senna Plus 8.6-50 mg Softgel] 1 each PO DAILY #20 capsule 06/07/22 [Rx] Follow up Appointment(s)/Referral(s): Bob Donovan, GOYO [PHYSICIAN POSTDOCTORAL SCHOLAR] - 2 Weeks [facility] Visiting Nurse, [NON-STAFF] - As Needed Patient Instructions/Handouts: Anterior Hip Replacement (DC) Activity/Diet/Wound Care/Special Instructions: Orthopedic Discharge Instructions: 1. Wound care and infection precautions, keep incision dry and covered while showering, no lotions, creams, moisturizers. No soaking, pools, hot tubs. Do not scrub over incision. 2. Weight-bear as tolerated with walker / cane until follow-up. 3. Ice and elevate when necessary. Do not exceed 20 minutes per hour with ice pack. 4. Utilize compression sleeve until seen at first follow up appointment. 5. Pain meds and anticoagulants per prescription. 6. Pain medication has potential to cause constipation. Increase oral fluid and fiber intake. Contact primary care provider if you have not had a bowel movement within 48 hours after discharge. 7. No anti-inflammatory medication until discussed at first post operative visit, this including Motrin, Aleve, Mobic, Diclofenac. 8. Follow up in office at 2 weeks postop with Gregorio Neff PA-C / Bob Donovan PA-C 9. Follow up with your primary care doctor 7-10 days after discharge. 10. Contact [facility] with any questions, . Keep incision clean, dry, intact. While showering, cover fusion tape with Saran wrap. Keep fusion tape on until follow-up appointment in office in 2 weeks. Discharge Disposition: HOME WITH HOME HEALTH SERVICES
[2022-06-07 13:26] VITALS: BP 138/68; PULSE 84; TEMP 97.6
--- NOTE | 2022-06-07 19:11 | P.CONS ---
History of Present Illness - Reason for Consult Consult date: 06/07/22 Medical management hypertension Requesting physician: Isidoro Keita - Chief Complaint Progressive left hip pain, osteoarthritis, status post surgical repair - History of Present Illness This a pleasant 72-year-old female with stage IV left hip avascular necrosis, status post left total hip arthroplasty, postop day 1, in a patient with history of right foot bone spur, adenocarcinoma lung cancer, breast cancer with previous lumpectomy ,radiation and hormonal treatment, osteoarthritis, anxiety, ongoing nicotine dependence, COPD, occasional alcohol use. Tolerated procedure well. Reports she continues to have significant hip pain, recently medicated. Reports difficulty ambulating around and requiring assistance for ADLs. PT evaluation/stairs pending. Hypertensive and home antihypertensives resumed. Denies chest pain, palpitations or shortness of breath. Denies lightheadedness, dizziness or focal deficits. Positive diet intake. Denies passing flatus or alexander wel movement. Afebrile, maintaining O2 sats in high 90s on room air Past Medical History Past Medical History: Cancer, Hypertension, Osteoarthritis (OA) Additional Past Medical History / Comment(s): lung cancer 2021-had surg., o steoporosis, hx. breast cancer 2016-had surg. & radiation, current right foot pain-has bone spur History of Any Multi-Drug Resistant Organisms: None Reported Past Surgical History: Breast Surgery Additional Past Surgical History / Comment(s): ectopic , lumpectomy left, thorascopic left upper lobectomy in 2021 Past Anesthesia/Blood Transfusion Reactions: No Reported Reaction Additional Past Anesthesia/Blood Transfusion Reaction / Comm: no hx blood transfusion Past Psychological History: Anxiety, Depression Smoking Status: Current every day smoker Past Alcohol Use History: Occasional Additional Past Alcohol Use History / Comment(s): 1/2 ppk day x 30 yrs down to 5 cigs/day, was 2 beers daily, not that much recently, not daily or 7 or more week right now Past Drug Use History: None Reported - Past Family History Mother Family Medical History: Cancer Brother(s) Family Medical History: Cancer Additional Family Medical History / Comment(s): 1 brother-prostate Ca stge 4,1 brother-colon CA stge 4 Father Family Medical History: CVA/TIA, Hyperlipidemia, Hypertension Additional Family Medical History / Comment(s): stents Medications and Allergies Home Medications Medication Instructions Recorded Confirmed Type FLUoxetine HCL [PROzac] 10 mg PO QAM 10/24/21 06/06/22 History Losartan Potassium [Cozaar] 100 mg PO QAM 10/24/21 06/06/22 History Metoprolol Succinate (ER) [Toprol 25 mg PO QAM 10/24/21 06/06/22 History XL] Simvastatin [Zocor] 40 mg PO HS 10/24/21 06/06/22 History ALPRAZolam [Xanax] 0.25 mg PO BID PRN 11/09/21 06/06/22 History Albuterol Nebulized [Ventolin 2.5 mg INHALATION BID 12/16/21 06/06/22 History Nebulized] Budesonide/Glycopyr/Formoterol 2 puff INHALATION BID 12/16/21 06/06/22 History [Breztri Aerosphere Inhaler] traMADol HCL 50 mg PO BID PRN #6 tab 12/24/21 06/06/22 Rx Calcium Carbonate [Calcium] 600 mg PO DAILY 06/01/22 06/06/22 History Cholecalciferol [Vitamin D3 (25 25 mcg PO DAILY 06/01/22 06/06/22 History Mcg = 1000 Iu)] Romosozumab-Aqqg [Evenity] 105 mg SQ Q30D 06/01/22 06/06/22 History hydrOXYzine HCL [Atarax] 25 mg PO TID PRN 06/01/22 06/06/22 History Apixaban [Eliquis] 2.5 mg PO BID #60 tab 06/07/22 Rx HYDROcodone/APAP 5-325MG [[place] 1 - 2 tab PO Q6HR PRN #36 tab 06/07/22 Rx 5-325] Sennosides/Docusate Sodium [Senna 1 each PO DAILY #20 capsule 06/07/22 Rx Plus 8.6-50 mg Softgel] Allergies Allergy/AdvReac Type Severity Reaction Status Date / Time amoxicillin [From Augmentin] Allergy Rash/Hives Verified 06/06/22 07:32 clavulanic acid Allergy Rash/Hives Verified 06/06/22 07:32 [From Augmentin] ibuprofen [From Motrin] AdvReac GI upset Verified 06/06/22 07:32 Physical Exam Vitals: Vital Signs Temp Pulse Pulse Resp BP Pulse Ox 06/07/22 13:25 97.6 F 84 16 138/68 99 06/07/22 11:27 77 16 06/07/22 11:15 74 16 06/07/22 08:37 84 16 06/07/22 08:27 86 16 06/07/22 07:05 97.9 F 75 18 150/78 98 06/07/22 01:51 97.2 F L 77 15 101/61 97 06/06/22 21:31 80 06/06/22 21:24 78 06/06/22 19:42 97.6 F 77 16 101/60 96 Intake and Output 06/07/22 06/07/22 06/07/22 06:59 14:59 22:59 Other: # Voids 5 Physical Exam:Sitting up in bed, no acute distress, vital signs reviewed Head: Atraumatic, normocephalic. HEENT:Neck is supple.No JVD. Chest: Unlabored ,Clear throughout, no crackles, no rhonchi, no wheezes. Cardiac Exam: Normal S1 and S2, no S3 gallop, no murmur. Abdomen: Soft, nontender, no megaly, no rebound, no guarding, normal bowel sounds. Extremities: Left lower extremity dressing clean dry and intact ,No clubbing, no edema, no cyanosis. Positive DP pulse Neurological Exam: Cranial nerves II through XII grossly intact.No focal deficit. Psychiatric: Alert and oriented 3, mood and affect normal Skin: No rashes, warm and dry Results CBC & Chem 7: 06/07/22 06:21 06/06/22 18:10 Labs: Abnormal Lab Results - Last 24 Hours (Table) 06/06/22 06/07/22 Range/Units 18:10 06:21 WBC 11.82 H (4.50-10.00) X 10*3/uL RBC 3.14 L (4.10-5.20) X 10*6/uL Hgb 10.3 L (12.0-15.0) g/dL Hct 32.6 L (37.2-46.3) % MCV 103.8 H (80.0-97.0) fL MCH 32.8 H (27.0-32.0) pg MCHC 31.6 L (32.0-37.0) g/dL Immature Gran # 0.05 H (0.00-0.04) X 10*3/uL Neutrophils # 9.37 H (1.80-7.70) X 10*3/uL Monocytes # 1.17 H (0.20-1.00) X 10*3/uL Eosinophils # 0 L (0.04-0.35) X 10*3/uL Potassium 5.4 H (3.5-5.1) mmol/L Assessment and Plan Assessment: stage IV left hip avascular necrosis, status post left total hip arthroplasty Osteoporosis History of adenocarcinoma lung cancer , status post left upper lobectomy with mediastinal lymph node dissection 01/03 hypertension Hyperlipidemia Ongoing nicotine dependence COPD History of COVID-19 infection in August 2021. Vaccinated 3. history of left-sided breast cancer status post lumpectomy,radiation and hormonal treatment significant family history of cancer Hyperkalemia, recheck level ordered Plan: Continue on current medication regime ,monitoring and symptomatic treatment. Hypotensive, home meds /antihypertensives resumed .Pain management and DVT prophylaxis as per primary. Aggressive pulmonary toileting with incentive spirometer reinforced. Patient reported skipping her Evenity monthly injection this month and has been advised to not skip- resume. Also recommended in clinic steroid injection in the right foot, regarding ankle pain. Potassium 5.4 on admission, potassium level ordered. Suspect subacute rehab at discharge as patient reports difficulty ambulating and requesting assistance with ADLs. PT evaluation pending. Thank you for the consult. The impression and plan of care has been dictated as directed. : I performed a history and examination of this patient, discussed the same with the dictator. I agree with the dictator's note ,documented as a scribe. Any additional findings or plans will be noted.
== END 2022-06-07 14:35 | disposition home health service (06) ==
LOC: OR 07:08 → 4SSUR 13:25 → OR 06-07 14:35
PROVIDERS: ATTEND Orthopaedic Surgery
DX: M16.12 Unilateral primary osteoarthritis, left hip (principal); G89.18 Other acute postprocedural pain; I10 Essential (primary) hypertension; F41.8 Other specified anxiety disorders; F17.210 Nicotine dependence, cigarettes, uncomplicated; F10.90 Alcohol use, unspecified, uncomplicated; M81.0 Age-related osteoporosis without current pathological fracture; Z80.0 Family history of malignant neoplasm of digestive organs; Z82.49 Family history of ischemic heart disease and other diseases of the circulatory system; Z82.3 Family history of stroke; Z90.89 Acquired absence of other organs; Z90.12 Acquired absence of left breast and nipple; Z87.59 Personal history of other complications of pregnancy, childbirth and the puerperium; Z85.3 Personal history of malignant neoplasm of breast
CPT/HCPCS: 94640 ×3; 97161; 97535; 97165; 64447; 86900; 86901; 84132; 85025; 86850; 73501; 27130; C1776; J2250; J1100; J0690 ×2; J2405; J3010; J2795; J2704; 88305; 88311

== ENCOUNTER → 2022-07-14 | Outpatient (CLI) | payer MEDICARE ==
--- NOTE | 2022-07-14 11:32 | CT ---
EXAMINATION TYPE: CT ChestAbdPelvis w con DATE OF EXAM: 07/14/2022 COMPARISON: 11/10/2021 CT chest HISTORY: Hx lung ca. recent LT lobectomy, CT DLP: 854 mGycm CONTRAST: CT scan of the chest, abdomen and pelvis is performed with Oral Contrast and with IV Contrast, patien t injected with 80 mL of Isovue 300. CT Chest: LUNGS: Left central lobectomy changes. Small left-sided effusion. Pleural-based density right lower l obe is unchanged from prior study and likely reflects postinflammatory changes. No evidence for mass or pulmonary nodule. No infiltrate. No pleural effusion or CT evidence of interstitial lung disease. MEDIASTINUM: Thoracic aorta is of normal caliber. The heart is not enlarged. No evidence for media stinal mass or adenopathy. Calcified hilar mediastinal lymph nodes. HILAR STRUCTURES: No evidence for mass. No hilar adenopathy is appreciated. OTHER: No significant abnormality. CONTRAST CT ABDOMEN AND PELVIS FINDINGS: LIVER/GB: No calcified gallstones. No space occupying hepatic lesion. Biliary tree is of normal ca liber. PANCREAS: No inflammation. No distinct mass. SPLEEN: No splenic enlargement. No lesion seen. ADRENALS: No nodule. No thickening. KIDNEYS/BLADDER: No hydronephrosis. No nephrolithiasis. No disctinct renal mass. BOWEL: Normal appendix. Normal bowel caliber. No inflammation. GENITAL ORGANS: No gross abnormality. LYMPH NODES: No greater than 1cm abdominal or pelvic lymph nodes are appreciated. AORTA: No significant abnormality. OSSEOUS STRUCTURES: Left hip prosthesis noted. OTHER: No significant additional abnormality is seen. IMPRESSION: 1. Postoperative changes of left sided partial lobectomy without evidence for recurrent or residual d isease. Small left-sided pleural effusion identified. No evidence for distant metastases in the abdom en or pelvis.
== END | disposition home or self-care (01) ==
LOC: RADCTMAIN 09:05
PROVIDERS: ATTEND Internal Medicine Hematology & Oncology
DX: C34.12 Malignant neoplasm of upper lobe, left bronchus or lung (principal); J90 Pleural effusion, not elsewhere classified
CPT/HCPCS: 71260; 74177; 82565; 84520

== ENCOUNTER → 2023-03-06 | Outpatient (CLI) | payer MEDICARE ==
--- NOTE | 2023-03-06 11:48 | US ---
EXAMINATION TYPE: US arterial LE single level DATE OF EXAM: 03/06/2023 11:29 AM CLINICAL INDICATION: Female, 72 years old with history of M79.604 PAIN R LEG M79.605 PAIN L LEG; Rt f oot pain when walking History of: Smoker: Current Smoker Hypertension: Yes Diabetic: No Hyperlipidemia: Yes TIA/CVA: No Previous Vascular Surgery: No CAD: No [place]: No Vascular Ulcers: No Claudication: No Gangrene: No Doppler Waveforms: Right: Monophasic Left: Monophasic Right Brachial Pressure: 139 Left Brachial Pressure: 140 Ankle-Brachial Indices: Right: 0.3 Left: 0.7 Toe Brachial Indices: Right: 0.6 Left: 0.7 pressures taken several times, no skin discoloration or claudication IMPRESSION: Severe bilateral peripheral vascular disease.
== END | disposition home or self-care (01) ==
LOC: RADUSWWP 10:30
PROVIDERS: ATTEND Orthopaedic Surgery Foot and Ankle Surgery
DX: M79.604 Pain in right leg (principal); M79.605 Pain in left leg; I87.2 Venous insufficiency (chronic) (peripheral); M25.571 Pain in right ankle and joints of right foot; M79.671 Pain in right foot; M21.6X1 Other acquired deformities of right foot; M85.80 Other specified disorders of bone density and structure, unspecified site; R09.89 Other specified symptoms and signs involving the circulatory and respiratory systems
CPT/HCPCS: 93922

== ENCOUNTER → 2023-08-20 | Day surgery (SDC) | payer MEDICARE ==
[2023-08-14 15:45] VITALS: BMI 20.7
[~2023-08-20] MED LIST changes: -ACETAMINOPHEN TAB 500 MG TAB PO PRN; +ALPRAZolam 0.25 MG TAB PO PRN; -DEXAMETHASONE SOD PHOSPHATE 4 MG/ML 1 ML VIAL IV ONE; -HYDROmorphone 0.5 MG/0.5 ML SYRINGE IVP PRN; +LIDOCAINE 1% INJ 10MG/ML (20 ML MDV) ONE; -MELOXICAM 7.5 MG TAB PO PRN; -ONDANSETRON 4 MG/2 ML VIAL IVP ONE; -TRANEXAMIC ACID IN NACL,ISO-OS 1,000 MG in SALINE 1 100ML.BAG IVPB PRN; +VERAPAMIL 2.5 MG/ML 2 ML AMP ONE; +fentaNYL (PF) 50 MCG/ML 2 ML AMP ONE
[2023-08-20] MEDS: EMPTY BAG 1 BAG with SODIUM CHLORIDE 0.9% 1,000 ML IV SCH (06:15)
[2023-08-20] MEDS: IV FLUID CONTINUATION 1,000 ML IV ONE (06:15)
[2023-08-20 06:37] VITALS: TEMP 98.2
[2023-08-20 06:39] LABS: Basophils % (A) 0 %; Eosinophils # (A) 0.4 k/uL (0-0.7); Eosinophils % (A) 4 %; HCT 42.2 % (34.0-46.0); HGB 12.5 gm/dL (11.4-16.0); Hypochromasia Slight; Lymphocytes # (A) 1.9 k/uL (1.0-4.8); Lymphocytes % (A) 23 %; MCH 30.9 pg (25.0-35.0); MCHC 29.7 g/dL (31.0-37.0); Macrocytosis Slight; Monocytes # (A) 0.6 k/uL (0-1.0); Monocytes % (A) 7 %; Neutrophils # (A) 5.4 k/uL (1.3-7.7); Neutrophils % (A) 63 %; Platelet Count 345 k/uL (150-450); RBC 4.06 m/uL (3.80-5.40); RDW 12.9 % (11.5-15.5); WBC 8.5 k/uL (3.8-10.6)
[2023-08-20 06:55] LABS: African American GFR (CKD) 59 (>60 ml/min/1.73 sqM); Anion Gap 7 mmol/L; Blood Urea Nitrogen 24 mg/dL (7-17); Carbon Dioxide 19 mmol/L (22-30); Chloride 110 mmol/L (98-107); Glucose 90 mg/dL (74-99); Non-African American GFR(CKD) 52 (>60 ml/min/1.73 sqM); Sodium 136 mmol/L (137-145)
[2023-08-20 07:13] LABS: Potassium 5.5 mmol/L (3.5-5.1)
[2023-08-20] MEDS: MIDAZOLAM 2 MG/2 ML VIAL IVP ONE (07:32)
[2023-08-20] MEDS: fentaNYL (PF) 50 MCG/ML 2 ML AMP IVP ONE (07:32)
[2023-08-20] MEDS: LIDOCAINE 1% INJ 10MG/ML (20 ML MDV) SQ ONE (07:33)
--- NOTE | 2023-08-20 08:00 | P.OP ---
Date of Procedure: 08/20/23 Description of Procedure: Preoperative diagnosis: Disabling claudication, right foot pain, need for surgical intervention Postop diagnosis: Right external iliac severe stenosis greater than 90%, subtotal occlusion of the right superficial femoral artery with immediate reconstitution, multiple areas of stenosis of the left superficial femoral artery Procedure: Aortogram with bilateral lower extremity runoffs via left radial artery access under ultrasound guidance Surgeon: Troy Anesthesia: Moderate sedation times 21 minutes Estimated blood loss: 5cc Complications: None Condition: Stable Findings: Aorta: Patent without any significant calcification or stenosis. Bilateral renal artery takeoff patent without any stenosis Iliacs: Bilateral common iliac and internal iliac arteries without any significant calcification or stenosis. Right external iliac just above the common femoral artery demonstrates greater than 90% stenosis Femorals: Bilateral common femoral profundus femoris arteries are patent without any significant calcification or stenosis. Bilateral superficial femoral arteries are patent with multiple areas of stenosis throughout with subtotal occlusion noted of the right at the midportion just above the Adolfo's canal. Immediate reconstitution is noted through a collateral. Popliteal: Bilateral popliteal arteries are patent without any significant calcification or stenosis. Tibials: Bilateral tibial peroneal trunk is patent with three-vessel takeoff and two-vessel runoff to the ankle. Indication for procedure: 73-year-old female with history of right foot pain who has been seen by podiatry and was instructed that she will require foot surgery. Prior to her surgical intervention she had arterial Dopplers obtained which demonstrated severe occlusive disease bilaterally with a right OMAR measuring 0.3 and left measuring 0.7. Upon evaluation in the office she is having significant pain with ambulation in her foot and calf on the right more so than the left. She denies any rest pain. She presents today for aortogram with runoff via the left radial artery due to nonpalpable pulses in her lower extremities and to further delineate her arterial occlusive disease in order for revascularization to be done before her Podiatry intervention. Operative narrative: After written informed consent was obtained the patient all risks benefits competitions were described the patient is brought to the [employer] and laid in a supine position. The area of the left wrist was prepped and draped in the usual sterile fashion. Local anesthesia with moderate sedation was performed with continuous pulse ox monitoring and EKG monitoring. Utilizing ultrasound the left radial artery was visualized and shown to be patent without any significant plaque. Utilizing a multipurpose needle under ultrasound guidance the artery was accessed. Guidewire was placed followed by 5 Faroese sheath. 035 Glidewire was then placed into the aorta followed by pigtail catheter. Angiogram was then obtained of the aorta. Catheter was then placed at the bifurcation and lower extremity runoffs were obtained. Once completed all guidewires, catheters and sheaths were removed and pressure was placed with a TR band for hemostasis. Patient tolerated procedure well was sent to PACU for recovery
--- NOTE | 2023-08-20 08:53 | IR ---
EXAMINATION TYPE: IR angio abdominal w runoff Intraoperative/procedural fluoroscopic services were pr ovided. CLINICAL INDICATION:Female, 73 years old with history of AO W/RO, 3.0 MINS FLT, 37.5MGY; , H Total fluoroscopy time is 3 min. DAP: 1.79 Gycm2 Please see the operative/procedural note for further details.
[2023-08-20 09:31] VITALS: PULSE 72
[2023-08-20 09:35] VITALS: BP 129/57; RESP 16
== END | disposition home or self-care (01) ==
LOC: CATHCVL 05:43
PROVIDERS: ATTEND Surgery
DX: I70.213 Atherosclerosis of native arteries of extremities with intermittent claudication, bilateral legs (principal)
CPT/HCPCS: 36200; 75625; 75716; 80048; 85025; 99152; C1769 ×2; C1894; J2250; J2001; J3010

== ENCOUNTER → 2023-09-18 | Outpatient (CLI) | payer MEDICARE ==
--- NOTE | 2023-10-30 08:54 | CT ---
Patient: Juno Basurto Ordering Physician: Unknown, Unknown ID: [id number] Phone, Pager: Phone: N/A P ager: N/A : 1950 Age/Gender: 73Y, N/A Primary Location: N/A Procedure: CT CHEST WO CONTRAST [facility] Date: 09/18/2023 10:51:00 AM EXAMINATION TYPE: CT chest wo con DATE OF EXAM: 09/18/2023 COMPARISON: No comparison available on downtime PACS. HISTORY: Lung and breast cancer CT DLP: 136.80 mGycm, Automated exposure control for dose reduction was used. CONTRAST: Performed injected with 0 mL of Isovue 300. TECHNIQUE: Axial images were obtained at 5 mm thick sections. Reconstructed images are reviewed on [employer] computer in the coronal plane. FINDINGS: Portion of the thyroid visualized is normal. There is an irregular density within the posterior lateral right midlung measuring 1.4 x 2.1 cm. Some minimal pneumonitis changes in the posterior right lung at approximately the same level. Emphysematous changes are in the medial left lung base. No enlarged mediastinal or hilar adenopathy is evident. The ascending aorta diameter at the level of the main pulmonary artery is 3.2 cm. The main pulmonary artery diameter at the bifurcation is 2.[address] sections are obtained through the upper abdomen. Abdomen is essentially unremarkable. IMPRESSION: 1. Irregular density posterior lateral right lung. Neoplasm should be considered. Differential diagno sis could include infection. [facility], , 10/30/2023 8:52 AM
== END | disposition home or self-care (01) ==
LOC: RADCTMAIN 10:44
PROVIDERS: ATTEND Internal Medicine Hematology & Oncology
DX: C50.812 Malignant neoplasm of overlapping sites of left female breast (principal); C34.12 Malignant neoplasm of upper lobe, left bronchus or lung; E78.5 Hyperlipidemia, unspecified; Z17.0 Estrogen receptor positive status [ER+]
CPT/HCPCS: 71250

== ENCOUNTER 2023-09-24 05:00 | Observation (INO) | payer MEDICARE ==
[2023-09-24] MEDS ORDERED: SODIUM CHLORIDE 0.9% 100 ML BAG IV ONE (06:30)
[2023-09-24] MEDS ORDERED: LIDOCAINE 1% INJ 10MG/ML (20 ML MDV) ONE ×4 (07:15→10:10)
[2023-09-24] MEDS ORDERED: MIDAZOLAM 2 MG/2 ML VIAL ONE ×2 (07:23→10:17)
[2023-09-24] MEDS ORDERED: fentaNYL (PF) 50 MCG/ML 2 ML AMP ONE ×4 (07:23→10:24)
[2023-09-24] MEDS ORDERED: HEPARIN SODIUM 1,000 UN/ML (10ML VL) ONE ×2 (07:57)
[2023-09-24] MEDS ORDERED: CLOPIDOGREL 75 MG TAB ONE ×2 (09:10)
[2023-09-24] MEDS: IOPAMIDOL-370 100ML BTL INJ ONE (09:18)
[2023-09-24] MEDS ORDERED: HYDROmorphone 1 MG/ML 1 ML SYRINGE ONE (11:17)
[2023-09-24] MEDS ORDERED: HYDROcodone/APAP 5-325MG 1 EACH TAB ONE ×2 (17:35→20:50)
[2023-09-25] MEDS ORDERED: HYDROcodone/APAP 5-325MG 1 EACH TAB ONE ×2 (06:01→14:01)
[2023-09-25] MEDS ORDERED: LOSARTAN 50 MG TAB ONE (08:17)
[2023-09-25] MEDS ORDERED: METOPROLOL SUCCINATE (ER) 25 MG TAB.ER.24H PO ONE ×2 (08:20→09:00)
[2023-09-25] MEDS ORDERED: IOPAMIDOL-250 100ML BTL ONE (11:33)
[2023-09-25] MEDS ORDERED: NITROGLYCERIN-D5W PMX 25 MG/250 ML BTL IV ONE (11:41)
[2023-09-25] MEDS ORDERED: CLOPIDOGREL 75 MG TAB ONE (12:06)
--- NOTE | 2023-11-08 14:39 | OP ---
OPERATIVE REPORT DATE OF SERVICE : 09/24/2023 TIME: 929. PREOPERATIVE DIAGNOSES: 1. Right lower extremity claudication with rest pain. 2. Right external iliac artery stenosis greater than 90%. 3. Right superficial femoral artery subtotal occlusion. POSTOPERATIVE DIAGNOSES: 1. Right lower extremity claudication with rest pain. 2. Right external iliac artery stenosis greater than 90%. 3. Right superficial femoral artery subtotal occlusion. 4. With resolution of stenosis. PROCEDURE PERFORMED: 1. Ultrasound guided left common femoral artery access. 2. Aortogram with selective right lower extremity angiogram third-order. 3. Percutaneous transluminal balloon angioplasty of the right common iliac artery. 4. Percutaneous transluminal balloon angioplasty of the right external iliac artery with Shockwave, 7 x 60 mm balloon. 5. Percutaneous transluminal balloon angioplasty of the right superficial femoral artery with a 4 x 60 mm Shockwave balloon. 6. Percutaneous transluminal balloon angioplasty of the right superficial femoral artery with a 4 x 250 mm IN.PACT Admiral balloon. 7. Percutaneous transluminal stenting of the external iliac artery with 8 x 39 mm VBX balloon. 8. Percutaneous closure of the left common femoral artery with Vascade closure device. ANESTHESIA: Conscious sedation of 112 minutes. ESTIMATED BLOOD LOSS: Minimal. COMPLICATIONS: None. CONDITION: Stable. DISPOSITION: Palpable PT pulse on the right with multiphasic DP and PT signal bilaterally. INDICATIONS FOR PROCEDURE: This is a 73-year-old female with history of peripheral arterial disease who presented originally to the office secondary to worsening pain in her right lower extremity. She underwent arterial Doppler which demonstrated significant change in waveforms to the right lower extremity as well as decreased ABIs indicating need for aortogram. She then underwent aortogram with runoff via the left wrist which demonstrated severe stenosis of the right external iliac artery just above the inguinal ligament measuring greater than 90% as well as superficial femoral artery subtotal occlusion at the midportion with multiple areas of stenosis. She presents today for angiogram and revascularization of the right lower extremity with stenting of the right external iliac artery. OPERATIVE NARRATIVE: After written and informed consent was obtained from the patient, all risks, benefits, and complications were described, the patient was brought to the terrazzo laborer and laid in supine position. The area of groins was prepped and draped in usual sterile fashion. Utilizing ultrasound, the left common femoral artery was visualized and shown to be patent without any significant anterior calcification. There was posterior calcification noted. Under ultrasound guidance, the left common femoral artery was accessed and with a Micro-Access needle and utilizing Seldinger technique, a 6-Urugu[place] sheath was placed. A 0.035 Glidewire was then placed into the aorta followed by theo kline. The aortogram was then obtained demonstrating aneurysmal disease of the distal aorta as well as some areas of stenosis of the common iliac arteries bilaterally. Utilizing the shepherds hook in an up and over fashion, the right common iliac artery was accessed and a wire was placed distally. Shepherds hook was then removed and 0.035 Quick-Cross catheter was then placed over the wire and selective angiogram was obtained of the right lower extremity. There was significant disease noted in the external iliac artery greater than 90%. Utilizing the Quick-Cross catheter and 0.035 Glidewire Advantage, the lesion was crossed. Once the lesion was crossed, the 6-Uruguayan sheath was removed and replaced with a 6-[place] Raabe 55 cm sheath. The patient was then administered heparin and followed with serial ACTs for appropriate heparinization greater than 220. It was difficult to place the Raabe sheath due to the stenotic areas of the common iliac artery and therefore, a 5 mm x 40 mm balloon was used and balloon angioplasty was performed to allow for the sheath to be placed in an up and over fashion. Once completed, attention was then placed to the external iliac artery lesion. Quick-Cross catheter was then placed across the lesion and the wire was replaced with a 0.014 wire to allow for balloon angioplasty with Shockwave balloon. Utilizing a 7 x 60 mm Shockwave balloon, multiple treatments were performed at the external iliac artery. Once completed, angiogram was obtained demonstrating significant improvement, roughly down to 20% stenosis of the external iliac artery. Due to the difficulty to place the 6-[place] Raabe, attention was then placed distally to treat the SFA prior to coming back and treating the external iliac artery with a stent. Distal run-off was obtained demonstrating subtotal occlusion of the SFA at the midportion just above the Adolfo's canal with 3-vessel take-off distally after reconstitution and 2-vessel to the ankle. Utilizing the 0.014 wire, the lesion was crossed. Quick-Cross catheter was then placed across the lesion and distal angiogram was obtained demonstrating good intraluminal access. The Quick-Cross catheter was then removed and replaced with a 4 x 60 mm Shockwave balloon and multiple treatments were performed throughout the entirety of the superficial femoral artery. Once completed, a 4 x 250 mm IN.PACT Admiral balloon was placed and drug-eluting balloon angioplasty was performed. Once completed, final angiogram was obtained demonstrating brisk flow through the SFA with complete resolution of the stenosis and subtotal occlusion. 3-vessel take-off was noted and 2-vessel run-off to the ankle. 0.035 Glidewire Advantage was then replaced and the 6-[place] Raabe sheath was removed and replaced with a 7-[place] Raabe sheath to allow for stenting of the external iliac artery. Angiogram was again obtained demonstrating improved stenosis of the external iliac artery. Measurements were obtained for appropriate sizing and an 8 x 39 mm VBX covered stent was placed just distal to the lesion above the inguinal ligament. Once completed, final angiogram was obtained demonstrating brisk flow and resolution of the stenosis. All guidewires and catheters were then removed. Sheath was replaced with short 7-U[place]ayan sheath and Vascade closure device was placed in normal fashion. Pressure was then held for hemostasis. Hemostasis was assured and dressings were placed. The patient tolerated the procedure well and had multiphasic signal of DP, PT bilaterally with palpable PT pulse on the right. MMODL / IJN: [id number] /
--- NOTE | 2023-11-14 23:49 | IR ---
EXAMINATION TYPE: IR stent intravas non coronary Intraoperative/procedural fluoroscopic services were provided. CLINICAL INDICATION:Female, 73 years old with history of Right leg pain, 34.2min fluoro, 18kdij2; , [facility] Total fluoroscopy time is 34.2 min. DAP: 44 Gycm2 uGym2 Please see the operative/procedural note for further details. [facility], , 11/14/2023 11:47 PM
--- NOTE | 2023-11-14 23:50 | IR ---
EXAMINATION TYPE: IR stent intravas non coronary Intraoperative/procedural fluoroscopic services were provided. CLINICAL INDICATION:Female, 73 years old with history of Left lef pain, 30.1min fluoro, 38.5Gycm2; , [facility] Total fluoroscopy time is 30.1 min. DAP: 38.5 Gycm2 uGym2 Please see the operative/procedural note for further details. [facility], , 11/14/2023 11:47 PM
== END 2023-09-25 14:15 | disposition home or self-care (01) ==
LOC: CATHCVL 05:00 → INTOOBSV 06:05 → 6NMEDSUR 06:05 → UNDOADMOB 06:05 → 6NMEDSUR 07:30 → UNDODISIN 09-25 14:26
PROVIDERS: ADMIT Surgery; ATTEND Surgery
DX: I70.221 Atherosclerosis of native arteries of extremities with rest pain, right leg (principal); J44.9 Chronic obstructive pulmonary disease, unspecified; F41.9 Anxiety disorder, unspecified; Z79.899 Other long term (current) drug therapy; Z88.1 Allergy status to other antibiotic agents
CPT/HCPCS: 37226; G0378 ×2; C1894 ×6; C1769 ×5; C1725 ×4; C1887; C1876; C1874 ×2; C2623 ×2; C1760; C9764; C9765; J2250; J2001; J3010; J1644; J1170; Q9966; Q9967; J2305

== ENCOUNTER → 2023-09-26 | Outpatient (CLI) | payer MEDICARE | END | disposition home or self-care (01) | LOC: LABWHC1 11:13 | PROVIDERS: ATTEND Surgery | DX: D64.9 Anemia, unspecified (principal) | CPT/HCPCS: 36415; 85025 ==

== ENCOUNTER → 2023-11-15 | Outpatient (CLI) | payer MEDICARE ==
--- NOTE | 2023-11-16 19:30 | PE ---
EXAMINATION TYPE: PET CT fusion skull to thigh DATE OF EXAM: 11/15/2023 CLINICAL INDICATION:Female, 73 years old with history of C34.12; TECHNIQUE: Following the intravenous administration of 13.12 mCi of F-18 FDG, whole body images are performed from the skull base to the midthigh. Images are reviewed on the computer in the coronal, axial, and sagittal planes. Reconstructed rotating images are created on independent workstation and reviewed on the computer. A non-contrast CT is performed in conjunction with the PET scan. Glucose level 92 mg/dL CT DLP: 211.4 mGycm, Automated exposure control for dose reduction was used. COMPARISON: CT 09/18/2023, 07/14/2022, 11/10/2021, PET/CT 11/01/2021, MRI: None FINDINGS: Mediastinal SUV mean is 2.3. Hepatic parenchyma SUV mean is 2.7. SKULL BASE AND NECK: No suspicious radiotracer activity. CHEST, MEDIASTINUM, AND HILAR REGION: No suspicious radiotracer activity. Stable pleural-based density in the right lower lobe from prior studies measuring up to 2.0 cm. Demon strates a maximum SUV of 3.2. ABDOMEN AND PELVIS: No suspicious radiotracer activity. MUSCULOSKELETAL STRUCTURES: No suspicious radiotracer activity. Mild uptake identified within these central spinal cord at the T12 level which is likely physiologic or benign. Typical location. OTHER CT: Postoperative changes from left-sided partial lobectomy. Small coronary arterial calcificat ions. Bilateral carotid bulb calcifications.Left total hip arthroplasty changes. Left official femora l artery stent or bypass with stranding changes within the left inguinal region with some trace uptak e from inflammation. Right external iliac artery stent. Moderate atherosclerotic calcification of the aorta and its branches. IMPRESSION: 1. No new suspicious radiotracer activity to suggest recurrence or metastasis. 2. Similar small right lower lobe pleural-based consolidative opacity with uptake near background le vels dating back to least 2021 and favored to represent a chronic inflammatory process. [facility], , 11/16/2023 7:28 PM
== END | disposition home or self-care (01) ==
LOC: RADPETMAIN 14:40
PROVIDERS: ATTEND Internal Medicine Hematology & Oncology
DX: C34.12 Malignant neoplasm of upper lobe, left bronchus or lung (principal); R91.8 Other nonspecific abnormal finding of lung field
CPT/HCPCS: 78815; A9552

== ENCOUNTER → 2024-03-18 | Outpatient (CLI) | payer MEDICARE ==
[2024-03-18 10:44] LABS: African American GFR (CKD) 47 (>60 ml/min/1.73 sqM); Blood Urea Nitrogen 44 mg/dL (7-17); Non-African American GFR(CKD) 40 (>60 ml/min/1.73 sqM)
--- NOTE | 2024-03-18 11:40 | CT ---
EXAMINATION TYPE: CT chest w con DATE OF EXAM: 03/18/2024 11:15 AM COMPARISON: 07/14/2022, 09/18/2023, 11/15/2023. CLINICAL INDICATION: Female, 73 years old with history of C34.12 Lung Ca; PHH, Lung CA TECHNIQUE: Multiple axial images were obtained through the chest. Sagittal and coronal reformats were created for review. MIP was performed on a separate workstation. Contrast used:100 mL of Isovue 300 with IV Contrast (None if empty) Oral contrast used: (None if empty) CT DLP: 117.3 mGycm, Automated exposure control for dose reduction was used. FINDINGS: LUNGS/ PLEURA: Right lower lobe mixed density nodule which is groundglass and demonstrates area of mo re solid appearance r is again redemonstrated measuring up to 18 mm which is similar given difference s in technique. No additional pulmonary nodules identified. No focal consolidation, pneumothorax or p leural effusion. AIRWAY: Patent and unremarkable. HEART: Size within normal limits MEDIASTINUM: VASCULATURE: No aortic aneurysm. Moderate atherosclerotic plaque of the aorta and near the origins o f the major vessels of the aortic arch. The subclavian artery on the left demonstrates at least 25-50 % stenosis. No filling defect to suggest pulmonary embolism and no central pulmonary arterial vascula ture. MUSCULOSKELETAL: No acute osseous abnormalities SOFT TISSUES/LYMPH NODES: Unremarkable. LOWER NECK: No significant findings. UPPER ABDOMEN: No significant findings. IMPRESSION: 1. Groundglass and solid nodule seen on PET/CT remains and may be with more solid component compared to prior. Consider bronchoscopic guided biopsy to exclude malignancy. 2. Dense calcified plaque with at least 25-50% stenosis of the left subclavian artery near its origi n. [facility], , 03/18/2024 11:38 AM
== END | disposition home or self-care (01) ==
LOC: RADCTMAIN 09:56
PROVIDERS: ATTEND Internal Medicine Hematology & Oncology
DX: C34.12 Malignant neoplasm of upper lobe, left bronchus or lung (principal); C50.812 Malignant neoplasm of overlapping sites of left female breast; E78.5 Hyperlipidemia, unspecified; I65.22 Occlusion and stenosis of left carotid artery; R91.1 Solitary pulmonary nodule; Z71.0 Person encountering health services to consult on behalf of another person
CPT/HCPCS: 82565; 84520; 71260; 36415; Q9967

== ENCOUNTER → 2024-07-02 | Outpatient (CLI) | payer MEDICARE ==
[2024-07-02 13:23] LABS: African American GFR (CKD) 42 (>60 ml/min/1.73 sqM); Blood Urea Nitrogen 36 mg/dL (7-17); Non-African American GFR(CKD) 37 (>60 ml/min/1.73 sqM)
--- NOTE | 2024-07-02 14:28 | CT ---
EXAMINATION TYPE: CT chest wo con DATE OF EXAM: 07/02/2024 COMPARISON: 03/18/2024 CLINICAL INDICATION: Female, 74 years old with history of C34.12 lung ca; PHH, H/O LUNG CANCER TECHNIQUE: CT scan of the thorax is performed without IV contrast. CT DLP: [address] CTDI: mGy Automated exposure control for dose reduction was used. FINDINGS: There are mild emphysematous changes with an upper lobe predominance. There is no change in the mixed solid and groundglass nodule/mass in the right lower lobe which remai n suspicious for malignancy. No new masses or nodules are seen. There are mild chronic interstitial changes in the lingula. There is no airspace consolidation There is no pleural effusion or pneumothorax. There is no mediastinal, hilar or axillary adenopathy. The great vessels the chest and heart are normal in size. Limited scanning through the upper abdomen reveals no gross abnormality. There are no focal osseous lesions. IMPRESSION: 1. Stable mixed solid and groundglass mass/nodule in the right lower lobe suspicious for malignancy. 2. No new abnormalities seen. 3. No acute cardiopulmonary disease. 4. Mild emphysematous changes and chronic interstitial changes in the lingula. [facility], , 07/02/2024 2:25 PM
== END | disposition home or self-care (01) ==
LOC: RADCTMAIN 12:44
PROVIDERS: ATTEND Internal Medicine Hematology & Oncology
DX: C34.12 Malignant neoplasm of upper lobe, left bronchus or lung (principal); C50.812 Malignant neoplasm of overlapping sites of left female breast; E78.5 Hyperlipidemia, unspecified; R91.8 Other nonspecific abnormal finding of lung field; Z17.0 Estrogen receptor positive status [ER+]; J98.4 Other disorders of lung; J43.9 Emphysema, unspecified
CPT/HCPCS: 71250; 82565; 84520

== ENCOUNTER 2024-09-12 07:36 | Day surgery (SDC) | payer MEDICARE ==
[2024-09-12] MEDS: IV FLUID CONTINUATION 1,000 ML IV ONE ×3 (08:06→12:45)
[2024-09-12] MEDS: EMPTY BAG 1 BAG with SODIUM CHLORIDE 0.9% 1,000 ML IV SCH (08:09)
[2024-09-12 08:25] LABS: Basophils # (A) 0.06 10*3/uL (0.00-0.10); Basophils % (A) 0.7 %; Eosinophils # (A) 0.23 10*3/uL (0.04-0.35); Eosinophils % (A) 2.7 %; HCT 35.5 % (37.2-46.3); HGB 11.7 g/dL (12.0-15.0); Lymphocytes # (A) 1.35 10*3/uL (0.90-5.00); Lymphocytes % (A) 16.1 %; MCH 33.1 pg (27.0-32.0); MCHC 33.0 g/dL (32.0-37.0); MCV 100.6 fL (80.0-97.0); Monocytes # (A) 0.71 10*3/uL (0.20-1.00); Monocytes % (A) 8.5 %; Neutrophils # (A) 6.01 10*3/uL (1.80-7.70); Neutrophils % (A) 71.8 %; Platelet Count 290 10*3/uL (140-440); RBC 3.53 10*6/uL (4.10-5.20); RDW 13.2 % (11.5-14.5); WBC 8.38 10*3/uL (4.50-10.00)
[2024-09-12 08:30] VITALS: RESP 16; TEMP 988
[2024-09-12 09:05] LABS: African American GFR (CKD) 51 (>60 ml/min/1.73 sqM); Anion Gap 8 mmol/L; Blood Urea Nitrogen 30 mg/dL (7-17); Calcium 8.6 mg/dL (8.4-10.2); Carbon Dioxide 21 mmol/L (22-30); Chloride 108 mmol/L (98-107); Glucose 98 mg/dL (74-99); Non-African American GFR(CKD) 44 (>60 ml/min/1.73 sqM); Potassium 4.8 mmol/L (3.5-5.1); Sodium 137 mmol/L (137-145)
[2024-09-12] MEDS: fentaNYL (PF) 50 MCG/1 ML VIAL IVP ONE (09:40)
[2024-09-12] MEDS: LIDOCAINE 1% INJ 10MG/ML (20 ML MDV) SQ ONE (09:40)
[2024-09-12] MEDS: MIDAZOLAM 2 MG/2 ML VIAL IVP ONE (09:40)
[2024-09-12] MEDS: HEPARIN SODIUM 1,000 UN/ML (10ML VL) IVP ONE (09:55)
[2024-09-12] MEDS: HYDROmorphone 0.5 MG/0.5 ML SYRINGE IVP ONE ×2 (11:04→11:14)
[2024-09-12] MEDS: IOPAMIDOL-370 100ML BTL INJ ONE (11:28)
[2024-09-12] MEDS: CLOPIDOGREL 75 MG TAB PO ONE (11:45)
--- NOTE | 2024-09-12 11:51 | P.OP ---
Date of Procedure: 09/12/24 Preoperative Diagnosis: Disabling claudication Marquita classification 3 Right SFA occlusive disease Postoperative Diagnosis: Same Left SFA occlusion Right two-vessel runoff to the ankle Procedure(s) Performed: Ultrasound-guided left common femoral artery access Aortogram with selective right lower extremity angiogram third order Percutaneous transluminal balloon angioplasty of the right superficial femoral artery, proximal popliteal artery Percutaneous transluminal stenting of the right superficial femoral artery extending to the popliteal artery Percutaneous closure of the left common femoral artery with Vascade device Conscious sedation x 120 minutes Anesthesia: local Surgeon: Juan Pablo Simmons Estimated Blood Loss (ml): 20 Pathology: none sent Condition: stable Disposition: PACU Indications for Procedure: 74-year-old female with history of peripheral arterial disease, claudication who presents to the hospital secondary to worsening ABIs and pain of her right lower extremity. Her last OMAR demonstrated 0.4 on the right which is considerably less than previous after her previous intervention last year. Description of Procedure: After written and informed consent was obtained the patient all risks, benefits and complications were described patient is brought to the Clinical Registered Nurse and laid supine position. The area of the left groin was prepped and draped in usual sterile fashion. Timeout was performed in normal fashion. Utilizing ultrasound the left femoral artery was accessed and a 6 F sheath was placed. 035 Glidewire was then placed into the aorta followed by a martinez's hook catheter, a gram was obtained and the right iliac was accessed in an up and over fashion. Selective angiogram was then obtained of the right lower extremity demonstrating occluded SFA with reconstitution at the Adolfo's canal proximal popliteal danita ry. Patient was given heparin and followed with ACTs. An 035 Glidewire advantage was then placed in an up and over fashion and the 6 F short sheath was removed and replaced with an up and over 6 F sheath. Selective angiogram was again obtained demonstrating occlusion/stenosis of the occlusion of the SFA with small takeoff noted just at the bifurcation with reconstitution above the knee just distal to Adolfo's canal. Utilizing multiple guidewires and catheters the lesion was crossed and selective angiogram distally was obtained demonstrating good intraluminal access. Balloon angioplasty was then performed with a 3 x 200 mm balloon followed by a 4 x 200 mm drug-eluting balloon. Angiogram demonstrated significant improvement but area of dissection and therefore transluminal stenting was performed with a 5 x 120 mm, and two 5 x 100 mm stents. Final angiogram demonstrated flow with complete resolution of the occlusion and two-vessel runoff to the ankle with the posterior tibial artery being more prominent. All guidewires and catheters were then removed the sheath was removed and replaced with a short 6 F sheath and utilizing a Vascade closure device the access was closed. Pressure was placed for hemostasis. The patient tolerated the procedure well and had palpable PT pulse on the right and was sent to recovery.
--- NOTE | 2024-09-12 14:11 | IR ---
EXAMINATION TYPE: IR stent intravas non coronary DATE OF EXAM: 09/12/2024 COMPARISON: NONE CLINICAL INDICATION: Female, 74 years old with history of Leg pain, 49.5m/24.4 DAP, Lt gr Vascade; Fluoroscopy was provided to the referring clinician. [facility], , 09/12/2024 2:09 PM
[2024-09-12 17:43] VITALS: BP 172/58; PULSE 57
== END 2024-09-12 16:55 | disposition home or self-care (01) ==
LOC: CATHCVL 07:36
PROVIDERS: ATTEND Surgery
DX: I70.213 Atherosclerosis of native arteries of extremities with intermittent claudication, bilateral legs (principal)
CPT/HCPCS: 80048; 85025; 37226; 99152; 99153; C1894 ×2; C1769 ×4; C1887; C1725; C1876; C2623; C1760; J2250; J2003; J1644; J1171; Q9967; J3010; 75625; 75710